=== PATIENT | female | born 1960 | race Caucasian/White ===

== ENCOUNTER 2020-01-01 00:14 | Day surgery (SDC) | payer BC, OTHER, SELFPAY ==
[2019-12-21 20:03] VITALS: BMI 41.6
[2020-01-01] VITALS (8 sets, daily range): BP systolic 108–148; BP diastolic 59–81; PULSE 67–87; RESP 14–21; TEMP 36.3–37.2; O2SAT 92–98
--- NOTE | 2020-01-01 07:22 | WPDHPUPDATE1 ---
History and Physical Update Update Date/Time: 01/01/20 07:22 History and Physical has been reviewed, including an updated exam of the patient. There are NO changes in the patient's condition. Risks, benefits, and alternatives have been discussed and questions answered. Patient agrees to proceed with procedure.
[2020-01-01] MEDS: LACTATED RINGERS 1,000 ML 30 ML IV CONT ×2 (07:30→11:08)
--- NOTE | 2020-01-01 08:08 | P.PNAN_ITS ---
Anes - Initial Pre Proc Eval Procedure: Operation Date: 01/01/20 09:00 Proposed Procedures p Excision Ganglion Cyst Right Foot - Alcon Ortega JR, MD Date/Time: 01/01/20 08:08 Surgeon: Alcon Ortega JR, MD Pre Op Diagnosis: Ganglion Cyst Right Foot Patient Data Age: 59 Gender: F Height: 1.65 m Weight: 113.63 kg Allergies Allergy/AdvReac Type Severity Reaction Status Date / Time aspirin Allergy Unknown Rash Verified 12/21/19 19:55 Home Medications Medication Instructions Recorded Confirmed Type biotin mcg PO 12/21/19 History cholecalciferol (vitamin D3) 10,000 unit PO DAILY 12/21/19 12/21/19 History [Vitamin D3] levothyroxine 12/21/19 History meloxicam 12/21/19 History modafinil mg 12/21/19 History valsartan-hydrochlorothiazide tablet 12/21/19 History Patient hx anesthesia problems: other (DIFFICULT INTUBATION) Family hx anesthesia problems: none PMFSH Past Medical History Medical History (Updated 01/01/20 @ 08:12 by Sánchez Molina MD) Cancer SKIN CANCER HTN (hypertension) Hypothyroidism Morbid obesity with BMI of 40.0-44.9, adult QI on CPAP PFO (patent foramen ovale) 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 Surgical History Surgical History (Updated 01/01/20 @ 08:10 by Sánchez Molina MD) History of appendectomy S/P cervical spinal fusion Family History Family History (System 11/16/19 @ 16:46 by Anastasia Mclaughlin) Mother Family history of malignant neoplasm Family history of heart disease in male family member before age 55, Onset Age: 67 Patient's mother is Father Family history of heart disease in male family member before age 55, Onset Age: 81 Patient's father is Father Diabetes mellitus, Onset Age: 81 Cerebrovascular accident, Onset Age: 81 Family history of coronary artery disease, Onset Age: 81 Other Asthma Social History Social History (System 11/16/19 @ 16:46 by Anastasia Mclaughlin) Smoking status: Never smoker Alcohol intake: never Anes - Eval Final PreProcedure Day of Procedure 01/01/20 08:08 Patient weight: morbidly obese Heart: regular rate and rhythm Lungs: clear to auscultation and normal air movement Airway: Mallampati scale class II Neurological: alert and oriented Last oral intake: >/= 8 hours ASA classification: III Emergent: no Anesthetic plan: proceed Anesthesia type and monitoring: general GIVS and LMA Informed Consent: The patient's anesthetic plan and its attendant risks and benefits were discussed with the patient/family/POA. Questions were solicited and answers provided to the satisfaction of the patient/family/POA.
[2020-01-01] MEDS: ceFAZolin 2 GM/D5W 50 ML 2 GM/50 ML BAG IVPB (09:52)
[2020-01-01] MEDS: LIDOCAINE HCL 2% LOCAL INJ 20 ML VIAL 10 ML INFILTRATE (10:52)
--- NOTE | 2020-01-01 11:28 | PM.OP ---
Procedure Note - Brief Procedure Note - Brief Date of procedure: 01/01/20 Pre-op diagnosis: Ganglion Cyst Right Foot Post-op diagnosis: other (Lipoma right foot) Procedure performed: Excision of lipoma right foot Anesthesia: GLMA Surgeon: Alcon Ortega JR, DPM Estimated blood loss (mL): 1 Complications: No immediate complications Condition: stable Disposition: same day
--- NOTE | 2020-01-01 12:37 | SUR.PHASEII ---
POST-OP SHOE PLACED TO RIGHT FOOT.
--- NOTE | 2020-01-01 13:04 | SUR.PHASEII ---
DR. SALDIVAR CALLED RE: ASPIRIN ORDER. PT IS ALLERGIC TO ASPIRIN. DR SALDIVAR SAID FOR PT NOT TO TAKE IT. PT UNDERSTANDS INSTRUCTIONS.
--- NOTE | 2020-01-02 14:02 | OP_ITS ---
DATE OF PROCEDURE: 01/01/2020 PREOPERATIVE DIAGNOSIS: Soft tissue mass, right foot. POSTOPERATIVE DIAGNOSIS: Lipoma, right foot. PROCEDURE: Excision of soft tissue mass, right foot. HEMOSTASIS: Pneumatic ankle tourniquet at 250 mmHg. ESTIMATED BLOOD LOSS: Minimal. MATERIALS USED: Surgicel, 4-0 Vicryl and 4-0 Monocryl. COMPLICATIONS: None. DESCRIPTION OF PROCEDURE: The patient brought into the operating room, placed on the operative table in a supine position. Pneumatic ankle tourniquet was placed about the patient's right ankle. Following IV sedation, I performed a local anesthetic block along the dorsal anterior ankle utilizing 20 mL of 1:1 mixture of 2% lidocaine plain 0.5% Marcaine plain. Next, the foot was scrubbed, prepped, and draped in usual aseptic manner. An Esmarch bandage was used to examine the patient's right foot and ankle and pneumatic ankle tourniquet was inflated. Surgery began in the following manner. Attention was then directed to the dorsal aspect of the right proximal foot. The incision started just distal to the navicular cuneiform joint and extended proximal to the talonavicular joint area. At this point, the incision was continued deep down through the subcutaneous tissues using sharp and blunt dissection. Incision was made just medial to the neurovascular bundle. The neurovascular bundle, which was palpated preoperatively and marked. The dissection was continued deep where the deep peroneal nerve was visualized and retracted medially. Furthermore, the dorsalis pedis artery was also visualized along with venae comitantes, which were also reflected laterally. Deep to the neurovascular bundle, was a large lipoma measuring approximately 4 cm in length x 4 cm in width. This was excised very carefully utilizing a needle-nose rongeur. No remnants of the lipoma were visualized. The lipoma was sent for gross and histopathology. The wound site was flushed with copious amounts of sterile saline. I utilized Surgicel overlying the neurovascular bundle to make sure that there was no postoperative bleeding. The wound site was then flushed with copious amounts of sterile saline once again and the subcutaneous structures were reapproximated, coapted utilizing 4-0 Vicryl. Next, the skin was reapproximated, coapted utilizing 4-0 Monocryl in a running subcuticular suture fashion technique. I applied a postsurgical dressing consisted one quarter-inch Steri-Strips, Adaptic, 4x4s, Kerlix, and Coban overlying the incision site. Next, a surgical shoe was applied to the right foot. The patient did very well with the procedure and anesthesia. She was taken to the recovery room with vital signs stable and vascular status intact to all toes of the right foot. Following a period of postoperative monitoring, the patient will be discharged home on the following written and oral postoperative instructions. 1. Keep the dressing clean, dry, and intact. 2. Avoid excessive ambulation. 3. Ice and elevate the right foot when at rest. 4. Wear surgical shoe at all times with ambulating. 5. Contact Dr. Ortega for all postop care and if any problems arise. 6. Prescriptions written for Percocet 5/325 dispensed 30 to be taken 1 p.o. q.4-6 hours as needed for severe pain. D I MT: Christian
== END 2020-01-01 13:02 | disposition home or self-care (01) ==
PROVIDERS: PCP Student in an Organized Health Care Education/Training Program; Visit Provider Podiatrist Foot & Ankle Surgery
PROC: (CPT 28039; principal; 2020-01-01 09:00)
DX: D17.79 Benign lipomatous neoplasm of other sites (principal); I10 Essential (primary) hypertension; E03.9 Hypothyroidism, unspecified; G47.33 Obstructive sleep apnea (adult) (pediatric); Q21.1 Atrial septal defect; E66.01 Morbid (severe) obesity due to excess calories; Z68.41 Body mass index [BMI] 40.0-44.9, adult; Z98.1 Arthrodesis status
CPT/HCPCS: 28039; 88304; J0131; J0690; J1100; J2250; J2405; J2704; J3010; J7120

== ENCOUNTER → 2021-01-02 01:16 | Outpatient (CLI) | payer OTHER, SELFPAY ==
[2021-01-02 18:28] LABS: SARS-CoV-2 RNA PCR Negative
== END ==
PROVIDERS: PCP Student in an Organized Health Care Education/Training Program; Visit Provider Surgery
DX: Z01.812 Encounter for preprocedural laboratory examination (principal); Z20.822 Contact with and (suspected) exposure to COVID-19
CPT/HCPCS: C9803; U0003; U0005

== ENCOUNTER 2021-01-05 01:03 | Day surgery (SDC) | payer OTHER, SELFPAY ==
[2021-01-02 10:19] VITALS: BMI 44.6
[2021-01-05] VITALS (8 sets, daily range): BP systolic 119–171; BP diastolic 56–95; PULSE 72–82; RESP 12–25; TEMP 36.4–36.8; O2SAT 97–100
[2021-01-05] MEDS: ACETAMINOPHEN 500 MG TABLET 1000 MG PO (12:04)
[2021-01-05] MEDS: KETOROLAC 15 MG/ML VIAL (*BKC) IV PUSH (12:06)
[2021-01-05] MEDS: LACTATED RINGERS 1,000 ML 30 ML IV CONT (12:07)
[2021-01-05 12:21] LABS: Glucose Point of Care 154 (65-105)
--- NOTE | 2021-01-05 12:34 | WPDANESEPPF ---
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 Patient Data Age: 60 Gender: F Height: 5 ft 4 in Weight: 115.7 kg Last Vital Signs Temp 97.6 F 01/05/21 12:23 Pulse 76 01/05/21 12:23 Resp 20 01/05/21 12:23 BP 151/84 H 01/05/21 12:23 Pulse Ox 98 01/05/21 12:23 Allergies Allergy/AdvReac Type Severity Reaction Status Date / Time aspirin Allergy Mild Rash Verified 01/02/21 10:16 atorvastatin AdvReac Mild myalgias Verified 01/02/21 10:16 Home Medications Medication Instructions Recorded Confirmed Type cholecalciferol (vitamin D3) 10,000 unit PO DAILY 12/21/19 01/02/21 History [Vitamin D3] levothyroxine 100 mcg PO DAILY 12/21/19 01/02/21 History meloxicam 15 mg PO DAILY 12/21/19 01/02/21 History modafinil [Provigil] 200 mg PO DAILY 12/21/19 01/02/21 History valsartan-hydrochlorothiazide 1 tablet PO DAILY 12/21/19 01/02/21 History clotrimazole 1 % topical cream 1 applic TOPICAL Q12H 09/12/20 01/02/21 History pravastatin 20 mg tablet 20 mg PO DAILY 09/12/20 01/02/21 History clopidogrel [Plavix] 75 mg PO DAILY 01/02/21 01/02/21 History Laboratory Tests 01/05/21 01/05/21 12:14 12:19 Sodium Pending Potassium Pending Chloride Pending Carbon Dioxide Pending Anion Gap Pending BUN Pending Creatinine Pending Estim Creat Clear Calc Pending Estimated GFR Pending Glucose Pending POC Capillary Glucose 154 mg/dl H mg/dl (65-105) Calcium Pending Patient hx anesthesia problems: none Family hx anesthesia problems: none PMFSH Past Medical History Medical History (Updated 12/19/20 @ 11:03 by Katrin Villalobos) Cancer SKIN CANCER History of kidney stones History of stroke 05/2020 HTN (hypertension) Hypothyroidism Morbid obesity with BMI of 40.0-44.9, adult QI on CPAP PFO (patent foramen ovale) 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 Status post placement of bone anchored hearing aid (BAHA) Surgical History Surgical History H/O breast reconstruction H/O total hysterectomy History of appendectomy History of arthroplasty of left shoulder History of D&C with ectopic removal History of left shoulder replacement History of surgical removal of skin lesion lipoma right foot History of tubal ligation History of tympanoplasty History of tympanostomy tube placement Hx of cardiac cath Hx of LASIK TENZIN S/P cervical spinal fusion S/P laparotomy oorpherectomy S/P tonsillectomy and adenoidectomy Family History Family History Mother Family history of malignant neoplasm Family history of heart disease in male family member before age 55, Onset Age: 67 Patient's mother is Asthma Diabetes mellitus Arthritis Father Family history of heart disease in male family member before age 55, Onset Age: 81 Patient's father is Diabetes mellitus Heart disease Cerebrovascular accident Sibling Heart disease Diabetes mellitus Sibling Heart disease Diabetes mellitus Grandparent Breast cancer Social History Social History Smoking status: Never smoker Alcohol intake: never Living arrangements: with family 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
[2021-01-05 12:36] LABS: Anion Gap 6 mmol/L (8-16); Blood Urea Nitrogen 13 mg/dL (7-17); Calcium 9.7 mg/dL (8.4-10.2); Carbon Dioxide 30 mmol/L (22-30); Chloride 105 mmol/L (98-107); Estimated CRCL calculation 107 ml/min; Estimated Glomerular Filt Rate > 60; Glucose 159 mg/dL (65-105); Potassium 3.9 mmol/L (3.4-5.0); Sodium 141 mmol/L (137-145)
--- NOTE | 2021-01-05 12:55 | WPDHPUPDATE1 ---
History and Physical Update Update Date/Time: 01/05/21 12:55 History and Physical has been reviewed, including an updated exam of the patient. There are NO changes in the patient's condition. Risks, benefits, and alternatives have been discussed and questions answered. Patient agrees to proceed with procedure.
[2021-01-05] MEDS: ceFAZolin 2 GM/D5W 50 ML 2 GM/50 ML BAG IVPB (13:11)
--- NOTE | 2021-01-05 13:11 | P.OP_ITS ---
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 She was then placed in prone alana-knife position. The buttocks were taped apart. Prep and drape was carried out. Hill-Diehl anoscope was used to inspect the perianal area and anal canal. In internal opening was easily seen in the anterior midline. An external opening was not readily apparent. A probe was then used and passed from the internal opening through a well-formed tract and came directly out the large, tender perianal skin tag. The tag must have contained the external opening. The skin tag was excised and sent to pathology in formalin. A short intersphincteric fistula tract was noted. The cautery was used and fistulotomy was performed. Granulation tissue was removed from the tract. The entire wound was infiltrated with local anesthetic for postoperative pain control. Cautery was used for hemostasis. The wound was dressed with Xeroform gauze and fluffs. Tape and Promise panties were placed. The patient was returned to a supine position. She was awakened and extubated. She was taken to recovery in good condition. Sponge and needle counts were correct x2. 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 Skin tag sent for histology.
[2021-01-05] MEDS: BUPIVACAINE/EPINEPHRINE 0.5% 30 ML VIAL INFILTRATE (13:42)
== END 2021-01-05 15:36 | disposition home or self-care (01) ==
PROVIDERS: Anesthesiology; PCP Student in an Organized Health Care Education/Training Program; Visit Provider Surgery
PROC: (CPT 46275; principal; 2021-01-05 13:30)
DX: K60.3 Anal fistula (principal); L91.8 Other hypertrophic disorders of the skin; I10 Essential (primary) hypertension; Q21.1 Atrial septal defect; E03.9 Hypothyroidism, unspecified; G47.33 Obstructive sleep apnea (adult) (pediatric); Z86.73 Personal history of transient ischemic attack (TIA), and cerebral infarction without residual deficits; E66.01 Morbid (severe) obesity due to excess calories; Z68.41 Body mass index [BMI] 40.0-44.9, adult; Z98.1 Arthrodesis status; Z79.899 Other long term (current) drug therapy; Z79.02 Long term (current) use of antithrombotics/antiplatelets
CPT/HCPCS: 46275; 36415; 80048; 82948; 88304; 88305; A9270; C9803; J0330; J0690; J1100; J1885; J2250; J2370; J2405; J2704; J3010; J7120; U0003; U0005

== ENCOUNTER 2021-01-19 12:37 | Outpatient (CLI) | payer OTHER, SELFPAY ==
--- NOTE | ~2021-01-19 | CT_ITS ---
EXAMINATION: CT abdomen pelvis wo/w con DATE: 01/19/2021 13:56 INDICATION: Gross hematuria TECHNIQUE: Computed tomography (CT) of the abdomen and pelvis was performed without and subsequently with 130 cc Omnipaque 350 intravenous contrast. Automated exposure control and iterative reconstructi on technique were employed. Exam dose: 2979.53 mGy-cm total exam DLP. COMPARISON: 07/11/2015 CT abdomen pelvis FINDINGS: The lung bases are clear of infiltrate or consolidation. Normal heart size. No pericardial or pleural effusion. There is diffuse hepatic steatosis. No hepatic space-occupying mass lesion. No intrahepatic or extrah epatic bile duct or pancreatic duct dilatation. No pancreatic mass lesion or calcification. Normal sp lenic size. The gallbladder is present. No gallbladder wall thickening or pericholecystic fluid or fat stranding. CT is not sensitive for detection of gallstones; ultrasound of the gallbladder was more appropriate for this purpose. Normal morphology of the adrenal glands. 7.5 mm fat density lesion at upper pole right kidney, likely a small angiomyolipoma. No other renal s pace occupying mass lesion is evident. The urinary bladder is unremarkable. 4 x 7.5 x 7 mm right renal pelvic calculus (917 Hounsfield units). 3 mm nonobstructing right renal calculus. Punctate and adjacent 2.8 mm left renal nonobstructing calculi. No ureteral calculus or hydroureteronephrosis. No bowel obstruction, bowel wall thickening, pneumatosis or intraperitoneal free air. Status post hysterectomy. Normal caliber of the abdominal aorta. No intraperitoneal or retroperitoneal or pelvic mass lesion or adenopathy or ascites. Degenerative changes of the thoracic and lumbar spine. No suspicious osteolytic or osteoblastic lesio ns are noted. 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 Reviewed, dictated and finalized at location A. MAINTAINER SECTION
[2021-01-19 13:33] LABS: Estimated Glomerular Filt Rate > 60
== END 2021-01-19 12:38 | disposition home or self-care (01) ==
PROVIDERS: PCP Student in an Organized Health Care Education/Training Program; Visit Provider Student in an Organized Health Care Education/Training Program
DX: R31.0 Gross hematuria (principal); N20.0 Calculus of kidney; M47.815 Spondylosis without myelopathy or radiculopathy, thoracolumbar region; K76.0 Fatty (change of) liver, not elsewhere classified
CPT/HCPCS: 74178; Q9967

== ENCOUNTER 2021-12-11 09:11 | Outpatient (CLI) | payer OTHER, SELFPAY ==
--- NOTE | ~2021-12-11 | XR_ITS ---
EXAMINATION: XR abdomen/kub 1V DATE: 12/11/2021 09:37 INDICATION: Nephrolithiasis. TECHNIQUE: A supine view of the abdomen on 2 radiographs was obtained. COMPARISON: CT abdomen and pelvis 01/19/2021 FINDINGS: There are no dilated loops of bowel. There are phleboliths in the pelvis. IMPRESSION: 1. No visible urolithiasis. Reviewed, dictated and finalized at location A. HELPER FRUIT IMPRESSION: 1. No visible urolithiasis.
== END 2021-12-11 09:12 | disposition home or self-care (01) ==
LOC: ANHIMG 09:17
PROVIDERS: PCP Hospitalist; Visit Provider Urology
DX: N20.0 Calculus of kidney (principal)
CPT/HCPCS: 74018

== ENCOUNTER 2022-07-10 08:45 | Outpatient (CLI) | payer OTHER, SELFPAY ==
--- NOTE | ~2022-07-10 | XR_ITS ---
XR abdomen/kub 1V 07/10/2022 09:01 INDICATION: Nephrolithiasis TECHNIQUE: KUB COMPARISON: 12/11/2021 FINDINGS: Bowel gas pattern is normal. There is no evidence of free air, mass, organomegaly, ascites or obstruction. No abnormal calculi are seen. Calcifications in the pelvis are believed to be phleb oliths. The bones appear intact. IMPRESSION: 1: No acute abdominal abnormality identified. Reviewed, dictated and finalized at location B.
== END 2022-07-10 08:46 | disposition home or self-care (01) ==
LOC: ANHIMG 08:50
PROVIDERS: PCP Hospitalist; Visit Provider Urology
DX: N20.0 Calculus of kidney (principal)
CPT/HCPCS: 74018

== ENCOUNTER 2024-02-12 14:43 | Outpatient (CLI) | payer OTHER, SELFPAY ==
--- NOTE | ~2024-02-12 | XR_ITS ---
XR hip LT 2V w AP pelvis DATE: 02/12/2024 14:58 INDICATION: Left hip pain TECHNIQUE: AP pelvis. AP and lateral views of left hip. COMPARISON: None FINDINGS: The pubic symphysis and sacroiliac joints are intact. No fracture or dislocation, avascular necrosis or bone destruction of the left hip. Left hip joint sp hailee appears relatively well preserved. No pelvic fracture or bone destruction. IMPRESSION: No significant abnormality Reviewed, dictated and finalized at location B. IMPRESSION: No significant abnormality
== END 2024-02-12 14:44 | disposition home or self-care (01) ==
LOC: ANHIMG 14:44
PROVIDERS: PCP Hospitalist; Visit Provider Orthopaedic Surgery
DX: M25.552 Pain in left hip (principal)
CPT/HCPCS: 73502

== ENCOUNTER 2024-04-30 09:13 | Outpatient (CLI) | payer OTHER, SELFPAY ==
--- NOTE | ~2024-04-30 | MR_ITS ---
MRI of the left hip Clinical history: Trochanteric bursitis Technique: Coronal T1-weighted, T2-weighted, and proton-density fat-sat images, and axial T1-weighted and proton-density fat-sat images were acquired through the pelvis. Coronal T2-weighted images and c oronal, axial, and sagittal proton-density fat-sat images were acquired through the left hip. Findings: There is no fracture or avascular necrosis of either hip. Bone marrow signals of the proxim al femora and pelvic bones are unremarkable. There is moderate to advanced diffuse chondromalacia bot h hip joints, left worse than right. No significant joint effusion. Questionable subtle linear tear o f the anterior left acetabulum. Visualized musculature about the pelvis and left hip is unremarkable. No muscle atrophy or edema. Ten dons are intact. No evidence of bursitis. No other fluid collection or mass lesion evident. There is minimal tendinosis of the insertion of the left gluteus medius/minimus tendons. IMPRESSION: No evidence for bursitis. Mild degenerative change of both hips, as detailed above. Questionable subtle linear anterior left acetabular labral tear. Mild tendinosis of the insertion of the left gluteus tendons on the greater trochanter. Reviewed, dictated and finalized at location . IMPRESSION: No evidence for bursitis. Mild degenerative change of both hips, as detailed above. Questionable subtle linear anterior left acetabular labral tear. Mild tendinosis of the insertion of the left gluteus tendons on the greater tro chanter.
== END 2024-04-30 09:14 ==
LOC: MICIMG 09:14
PROVIDERS: PCP Physician Assistant Surgical; Visit Provider Physician Assistant Surgical
DX: M70.62 Trochanteric bursitis, left hip (principal)
CPT/HCPCS: 73721

== ENCOUNTER 2024-05-21 09:20 | Outpatient (CLI) | payer OTHER, SELFPAY ==
--- NOTE | ~2024-05-21 | XR_ITS ---
XR abdomen/kub 1V Ordering provider: Ynes Lange PA-C History: . NEPHROLITHIASIS, LEFT SIDED DISCOMFORT, H/O STONES . Comparison: April 30, 2023 FINDINGS: BOWEL: Nonobstructive bowel gas pattern. ORGANOMEGALY: None. SIGNIFICANT PATHOLOGIC CALCIFICATIONS: None. OTHER: No free air is seen under the diaphragm. Degenerative disc disease at the level of T12-L1 and L5-S1. IMPRESSION: NO ACUTE ABDOMINAL FINDINGS. Reviewed, dictated and finalized at location A.
== END 2024-05-21 09:21 | disposition home or self-care (01) ==
LOC: ANHIMG 09:22
PROVIDERS: PCP Hospitalist; Visit Provider Physician Assistant
DX: N20.0 Calculus of kidney (principal)
CPT/HCPCS: 74018

== ENCOUNTER 2025-06-15 12:13 | Outpatient (CLI) | payer OTHER, SELFPAY ==
--- NOTE | ~2025-06-15 | XR_ITS ---
EXAM/PROCEDURE: XR abdomen/kub 1V - 06/15/2025 12:35 CDT HISTORY: 64 years old Female with NEPHROLITHIASIS COMPARISON: None available. TECHNIQUE: AP view(s) of the abdomen. FINDINGS: The bowel gas pattern is normal. There is no evidence for obstruction. No free intraperitoneal air is identified on this supine radiograph. The visualized soft tissue shadows are unremarkable. No gross bony abnormalities are seen. Visualized portions of lung bases are clear. IMPRESSION: No acute process. Reviewed, dictated and finalized at location A. IMPRESSION: No acute process.
--- OUTSIDE RECORDS SUMMARY | 2025-06-15 12:29 | XMS_ITS | Continuity of Care Document ---
Author Name [facility] Organization [facility] Care Team Providers Care Certified Diabetes Educator Name Role Phone [facility] Unavailable Unavailable Medications Combined list of outpatient medications from Department of Defense and Veterans Affairs facilities.Medications provided include 1) outpatient medications from the last 15 months, and 2) patient-reported medications. Medication Details Route Status Patient Instructions Prescription Expires Prescription Number Last Dispense Date Ordering Provider Order Date Order Qty Source CLOPIDOGREL (CLOPIDOGRE L BISULFATE), 75 MG, TABLET, ORAL, AUROBINDO PHARM, 500 ea. BOTTLE Active [id number] 2023 30 Pharmac y Data Transac tion Service Facilit y EZETIMIBE (ezetimibe) , 10 MG, TABLET, ORAL, AUROBINDO PHARM, 30 ea. BOTTLE Cancele d [id number] : 2023 0 Pharmac y Data Transac tion Service Facilit y EZETIMIBE (ezetimibe) , 10 MG, TABLET, ORAL, SANDOZ, 30 ea. BOTTLE Cancele d [id number] : 2023 0 Pharmac y Data Transac tion Service Facilit y LIOTHYRONIN E SODIUM (liothyroni ne sodium), 25 MCG, TABLET, ORAL, ROMMEL PHARMA IN, 100 ea. BOTTLE Active [id number] 4 2023 60 Pharmac y Data Transac tion Service Facilit y LIOTHYRONIN E SODIUM (liothyroni ne sodium), 25 MCG, TABLET, ORAL, SIGMAPHARM LABO, 90 ea. BOTTLE Cancele d [id number] : 2023 0 Pharmac y Data Transac tion Service Facilit y LIOTHYRONIN E SODIUM (liothyroni ne sodium), 25 MCG, TABLET, ORAL, SIGMAPHARM LABO, 90 ea. BOTTLE Cancele d [id number] : 2023 0 Pharmac y Data Transac tion Service Facilit y LIOTHYRONIN E SODIUM (liothyroni ne sodium), 25 MCG, TABLET, ORAL, SIGMAPHARM LABO, 90 ea. BOTTLE Active [id number] 4 2023 60 Pharmac y Data Transac tion Service Facilit y MOUNJARO (tirzepatid e), 7.5 MG/0.5, PEN INJCTR, SUBCUT, SUMAYA CARLOS & CO., .5 ml SYRINGE Active [id number] 4 2023 2 Pharmac y Data Transac tion Service Facilit y MOUNJARO (tirzepatid e), 7.5 MG/0.5, PEN INJCTR, SUBCUT, SUMAYA CARLOS & CO., .5 ml SYRINGE Active [id number] 2023 2 Pharmac y Data Transac tion Service Facilit y MOUNJARO (tirzepatid e), 7.5 MG/0.5, PEN INJCTR, SUBCUT, SUMAYA CARLOS & CO., .5 ml SYRINGE Active [id number] 4 2023 2 Pharmac y Data Transac tion Service Facilit y ONETOUCH VERIO TEST STRIP (blood sugar diagnostic) , STRIP, MISCELL, LIFESCAN, 50 ea. BOX Active [id number] 4 2023 50 Pharmac y Data Transac tion Service Facilit y OXYBUTYNIN CHLORIDE (oxybutynin chloride), 5 MG, TABLET, ORAL, NOVITIUM/AN I PH, 500 ea. BOTTLE Active [id number] 4 2023 30 Pharmac y Data Transac tion Service Facilit y Social History Combined list of available smoking, tobacco, and other social history from Department of Defense and Veterans Affairs facilities. Social History Type Response Date Comment Sour e This section is an empty social history section. [employer]
--- OUTSIDE RECORDS SUMMARY | 2025-06-15 12:29 | XMS_ITS | Clinical Summary ---
Author Organization [facility] A Address [address] [place] [address] Care Team Providers Care Personnel Analyst Name Role Phone Jacob Kuo MD Unavailable Drake Long MD Primary Care Provider [phone] Allergies Active Allergy Reactions Criticality Noted Date Comments Adhesive Rash Medium 09/01/2024 Aspirin Rash,Other (See comments) Medium Reaction: Rash, , Reaction: Rash, , Reaction: Rash, , Reaction: Rash, , Reaction: Unknown, , Reaction: RASH, Zscetcj-Mst-Wom Reductase Inhibitors Muscle pain Medium 07/17/2024 Medications cholecalcifero l (VITAMIN D-3) 66268 unit capsuleIndicat ions:Preventio n of Vitamin D Deficiency Take 1 capsule (10,000 Units total) by mouth system support developer before breakfast 11/25/19 19 Active clotrimazole-b etamethasone (LOTRISONE) cream Apply topically 2 (two) times a day 15 g 3 07/01/20 23 Active OneTouch Delica Plus Lancet 33 gauge miscIndication s:Type 2 diabetes mellitus without complication, without long-term current use of insulin (HCC) 1 each by other route 2 (two) times a day 07/17/20 24 Active OneTouch Verio test strips stripIndicatio ns:Type 2 diabetes mellitus without complication, without long-term current use of insulin (HCC) 1 each by other route 2 (two) times a day 150 strip 1 07/17/20 24 Active clopidogreL (PLAVIX) 75 mg tablet TAKE 1 TABLET(75 MG) BY MOUTH DAILY 90 tablet 1 01/04/20 25 Active celecoxib (CeleBREX) 200 mg capsule Take 1 capsule (200 mg total) by mouth daily 90 capsule 3 01/05/20 25 026 Active albuterol 2.5 mg /3 mL (0.083 %) nebulizer solution Take 3 mL (2.5 mg total) by nebulization 4 (four) times a day as needed for wheezing or shortness of breath 90 mL 1 01/12/20 25 026 Active tirzepatide (Mounjaro) 7.5 mg/0.5 mL pen injector injectionIndic ations:Type 2 diabetes mellitus without complication, without long-term current use of insulin (HCC) Inject 0.5 mL (7.5 mg total) under the skin once a week 6 mL 6 02/13/20 25 026 Active liothyronine (CYTOMEL) 25 mcg tabletIndicati ons: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 Romeo -not yet visually significant; BCVA 20/25 OD, 20/20 OS -difficulty with glasses from [place]; recommend seeking different ECP for this -new MRx issued today -RTC 1 year DFE Assessment & Plan (04/24/2022 9:47 AM CDT): Blood sugars have been highly variable - prior myopic lasik with Dr. Romeo. CLT wearer. Discussed that cataract is not the main limiter of her vision - and blood sugars are causing variability in refraction and vision. If PSC worsens to 20/40 vision ok to proceed despite Blood sugar issues otherwise recommend observation until diabetes stabilizes. Nephrolithiasis 12/25/2021 Assessment & Plan (12/25/2021 3:12 PM SKIN CARE CONSULTANT): Patient follows with Nephrology for management nephrolithiasis; most recent imaging demonstrated several small 7 mm stones as well as possible mild lipoma Will continue to follow-up imaging results and recommendations from Urology Bilateral lower extremity edema 11/07/2021 Assessment & Plan (11/07/2021 1:51 PM SKIN CARE CONSULTANT): Patient has worsening edema, pain and itching noted in skin Some hemochromatosis noted Previously evaluated emergency department no evidence of blood clots Start furosemide 20 mg daily, will adjust dose as necessary to achieve euvolemia Chronic right shoulder pain 11/07/2021 Assessment & Plan (02/12/2025 10:47 AM CDT): Continues on Celebrex. Will continue to monitor. Stable and well controlled. Assessment & Plan (11/07/2021 1:52 PM SKIN CARE CONSULTANT): Patient has worsening right shoulder pain, previously 2 left shoulder surgeries for osteoarthritis Has episodes of severe pain and decreased range of motion; patient reports pain is not constant comes and goes based on activities Will get imaging today and determine if patient benefit from physical therapy Type 2 diabetes mellitus wit hout complication, without long-term current use of insulin 11/07/2021 Assessment & Plan (02/12/2025 10:47 AM CDT): Lab Results Component Value Date HGBA1C 5.7 (H) 02/05/2025 HGBA1C 5.5 07/09/2024 HGBA1C 5.9 (H) 03/26/2024 Will refill mounjaro. Tolerating well with some constipation. Not ready to increase to 10 mg yet. Will continue to monitor. Will be seeing Proof Carrier soon to establish care. Orders: tirzepatide (Mounjaro) 7.5 mg/0.5 mL pen injector injection; Inject 0.5 mL (7.5 mg total) under the skin once a week CBC with auto differential; Future Hemoglobin A1c; Future Albumin Creatinine Ratio, Urine; Future Assessment & Plan (09/18/2024 11:57 AM CDT): -last A1c 5.5% -no diabetic retinopathy noted on today's examination -ed pt on tight BG control and A1c below 7.0 to reduce risk of ophthalmic complications -RTC 1 year DFE Assessment & Plan (07/17/2024 8:58 AM CDT): Chronic, stable, well controlled Most recent 5.5 Continuing with good results with Mounjaro Continue Mounjaro 7.5 mg weekly SubQ weekly Assessment & Plan (03/31/2024 10:21 AM CDT): Chronic, well controlled Most recent A1c 5.9 Continuing to have good results with Mounjaro Continue Mounjaro 7.5 mg SubQ weekly Repeat labs in 3 months Assessment & Plan (07/01/2023 1:06 PM CDT): Has been having improved blood sugar control at home -has had weight loss with mounjaro -has been having episodes of hypoglycemia with eating refined sugars in morning Home blood sugars are generally normal; patient reports she continues to work on low-carbohydrate diet Has some episodes of hypoglycemia after eating large amounts refined sugars Encouraged continued use of complex carbohydrates in limiting refined sugars Continue tirzepatide 7.5 mg weekly Assessment & Plan (03/01/2023 4:09 PM CDT): Not well controlled, last A1c was 8.9; LDL at target for type 2 diabetes Transition to monjauro; currently 2.5 mg daily, will continue to titrate up Patient has lost 20 lb, continues to have significant weight loss with use of monjauro Continue monjauro 2.5 mg, increase to 5 mg after 1 month Assessment & Plan (12/25/2021 3:10 PM SKIN CARE CONSULTANT): Stable, improving; A1c is decreased 8.9 since Patient reports fasting blood sugars remain around 170 Continue metformin 1000 mg daily, increase Rybelsus to 7 mg daily Sensorineural hearing loss (SNHL) of both ears 0 08/08/2021 Assessment & Plan (08/08/2021 4:25 PM CDT): Has been present for long duration, has hearing implants in place Some difficulty with hearing speech, especially with mass History of CVA (cerebrovascular accident) 2020 Assessment & Plan (08/08/2021 4:29 PM CDT): Stable, no residual deficits, continue clopidogrel 75 mg daily Unclear if due to embolic verses embolus from patent foramen ovale Will continue to monitor Class 2 severe obesity due t o excess calories with serious comorbidity and body mass index (BMI) of 38.0 to 38.9 in adult 08/15/2018 Assessment & Plan (02/12/2025 10:47 AM CDT): Encouraged heart healthy diet and lifestyle. Advised 150 min/week of aerobic exercise. Assessment & Plan (07/17/2024 9:02 AM CDT): Weight stable Continue Mounjaro 7.5 mg daily Assessment & Plan (07/01/2023 1:07 PM CDT): Has had good weight loss with Monjauro Continues to obtain weight loss Will monitor closely Assessment & Plan (03/01/2023 4:09 PM CDT): Stable improving; started on Monjauro for control of blood sugar and weight Has lost 20 lb Continue to encourage dietary changes and Monjauro Assessment & Plan (11/07/2021 1:53 PM SKIN CARE CONSULTANT): Patient reports recent weight gain however may be related to worsening edema Will work on euvolemia, will start; tied 3 mg daily and increase in order to help with weight loss and management of type 2 diabetes Assessment & Plan (08/08/2021 4:28 PM CDT): Stable, not well controlled Patient has worked on weight loss strategies in the past, has a success with keto diet though currently is not able to continue with keto Has been increasing eating out as well as eating more fried foods Discussed with patient portion of portion control, as well as healthy dietary choices when eating out Encouraged exercise at least 30 minutes of moderate intensity exercise 5 days per week Abdominal pain, RUQ 08/15/2018 Assessment & Plan (08/15/2018 11:09 AM CDT): Considering rapid weight gain of 40 lb in the last 9 months and clinical presentation, and suspicious of this being cholelithiasis. I did educate patient in regard to proper diet implement if in the event we are considering gallstones to be the cause of her symptoms I did prescribe Zofran with the education that often this slows down GI absorption that weight 1 an get to use to taking it. Encouragement was provided to the 5-6 smaller meals a day, completion of gallbladder ultrasound with following up with pending results of testing any for consultation to a surgeon for removal with. With she is wanting to see somewhat [facility] possible as she has previously seen Dr. Villarreal and is wanting to the go somewhere closer to home if she needs to see a surgeon. Fatty liver 08/15/2018 Anal fissure 08/22/2017 Assessment & Plan (08/22/2017 4:49 PM CDT): Nifedipine paste applied topically to area of pain twice a day. Sitz baths were again encouraged to the patient. Encouraged to purchase over the counter Fiber supplement and to drink water with fiber intake for best outcomes. Will follow-up, but educated patient that this will likely take time to improve. Primary hypertension 06/10/2017 Assessment & Plan (02/12/2025 10:47 AM CDT): Stable and well controlled. Will continue to monitor. Continue to hold medications. Assessment & Plan (07/17/2024 9:26 AM CDT): Chronic, well controlled BP at goal at visit; 116/76 Continue to monitor BP at home Will continue holding BP meds Assessment & Plan (03/31/2024 10:22 AM CDT): Chronic, well controlled Has not taken her medication yet today BP at goal at visit; 116/74 Patient wishes to trial stopping Valsartan Follow up 3 months Assessment & Plan (07/01/2023 1:07 PM CDT): Patient today bp at goal; has not taken medication today Given appropriate blood pressure today; will transition to valsartan 80 mg daily; continue to monitor closely to determine long-term needs Assessment & Plan (03/01/2023 4:07 PM CDT): Stable, well controlled; blood pressure at target Continue valsartan-hydrochlorothiazide 160-25 mg daily Assessment & Plan (11/07/2021 1:52 PM SKIN CARE CONSULTANT): Stable, well controlled; blood pressure at target today with no episodes of hypotension Continue valsartan-hydrochlorothiazide 160-25 mg daily Assessment & Plan (08/08/2021 4:26 PM CDT): Stable, well controlled; blood pressure at target today with no orthostatics are headaches Continue Diovan 160-25 mg Hypothyroidism 03/28/2015 Assessment & Plan (02/12/2025 10:47 AM CDT): Will recheck thyroid. Will continue to monitor. Has an appointment with new Endocrinology by her soon. Orders: Comprehensive metabolic panel; Future TSH; Future T4, free; Future Assessment & Plan (07/17/2024 8:56 AM CDT): Chronic, stable Most recent TSH 0.24 Continue Cytomel 25 mcg daily Assessment & Plan (03/31/2024 10:23 AM CDT): Stable, well controlled Continue Cytomel 25 mcg daily Repeat labs 3 months Assessment & Plan (07/01/2023 1:06 PM CDT): Stable, well controlled; patient has normal energy levels Continue liothyronine 50 mcg daily Assessment & Plan (03/01/2023 4:08 PM CDT): Stable, well controlled; continue Cytomel 50 mcg daily Assessment & Plan (11/07/2021 1:53 PM SKIN CARE CONSULTANT): Stable, well controlled; continue levothyroxine 100 mcg daily Assessment & Plan (08/08/2021 4:26 PM CDT): Stable, will continue levothyroxine 100 mcg; check TSH at follow-up appointment Chronic diastolic heart failure (CMS/HCC) 2013 Assessment & Plan (02/12/2025 10:47 AM CDT): Stable and controlled. No peripheral swelling noted. Will continue on Plavix. Assessment & Plan (07/01/2023 1:07 PM CDT): Stable, well controlled; no significant peripheral edema Assessment & Plan (12/25/2021 3:09 PM SKIN CARE CONSULTANT): Stable, improving; patient reports decreased peripheral edema furosemide; no evidence of orthopnea or dyspnea on exertion Continue furosemide 20 mg p.r.n. edema Atherosclerosis of coronary artery 07/22/2014 Obstructive sleep apnea syndrome 04/10/2014 Assessment & Plan (02/12/2025 10:47 AM CDT): Continues with CPAP use and monitoring. Following with Sleep Med. 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 Not tolerating statins. Will continue to monitor and control with diet. Orders: Lipid panel; Future Assessment & Plan (07/17/2024 9:02 AM CDT): Chronic, not controlled Has not been taking Pravastatin due to muscle cramps Assessment & Plan (03/31/2024 10:23 AM CDT): Chronic, not controlled Has not been taking Pravastatin due to cardiology not sending refill Restart Pravastatin 20 mg daily Repeat labs in 3 months Assessment & Plan (07/01/2023 1:06 PM CDT): Stable, well controlled Continue pravastatin 20 mg daily Assessment & Plan (03/01/2023 4:10 PM CDT): Stable, well controlled; LDL at target for type 2 diabetes Continue pravastatin 20 mg daily Assessment & Plan (11/07/2021 1:53 PM SKIN CARE CONSULTANT): Stable, continue pravastatin 20 mg daily Assessment & Plan (08/08/2021 4:26 PM CDT): Stable, continue pravastatin 20 mg daily Vitamin D deficiency 06/11/2011 Assessment & Plan (07/01/2023 1:05 PM CDT): Normal energy levels; will check vitamin-D levels to evaluate need for continue vitamin-D supplementation Resolved Problems Problem Noted Date Diagnosed Date Resolved Date Encounter for screening colonoscopy 09/27/2021 03/31/2024 Overview (09/27/2021): Added automatically from request for surgery [id number] Boil of buttock 04/06/2019 03/31/2024 Overview (04/06/2019): See problem noted above. Assessment & Plan (04/06/2019 9:11 AM CDT): Keflex 50mmg 1 tab QID x 10 days; pt is on prophylactic Duricef ; pharmacist at [facility] called and reminded him that she is on Duricef----states that he will appropriately correctional substance abuse counselor her on taking the Keflex; pt to call if sxs persist. Rectal abscess 08/19/2017 07/25/2018 Assessment & Plan (08/19/2017 3:38 PM CDT): Continue antibiotic as previously prescribed. Start Sitz baths 2-3 times per day. Proceed with surgical consultation-referral arranged. Elevated fasting glucose 06/10/201705/2024 Assessment & Plan (08/08/2021 4:28 PM CDT): Will continue metformin 1000 mg XR daily Continue to encourage dietary changes; if A1c remains elevated at next appointment, will consider additional therapies Morbid obesity 07/22/2014 08/15/2018 Overview (03/01/2017): Morbid obesity Shortness of breath 07/22/2014 07/25/20 18 Overview (03/01/2017): SOB (shortness of breath) Pulmonary hypertension 07/22/201403/31 Hyperlipidemia 04/10/2014 06/10/2017 Overview (03/01/2017): Hyperlipidemia Shoulder pain 06/16/2012 07/25/2018 Overview (03/01/2017): Shoulder pain, left Hypersomnia with sleep apnea 04/14/2012 07/17/2024 Obstructive sleep apnea syndrome in adult 04/14/2012 07/25/2018 Overview (03/02/2017): Obstructive sleep apnea syndrome in adult Encounters Date Type Department Care Team Description 04/05/2025 Telephone [facility] [address] [address] Karishma العلي NP Authorization/Certifica tion from Last 3 Months Immunizations Immunization Administration Dates Next Due Hep A / Hep B 11/22/2009 Influenza, Quadrivalent, Spl it, Preservative Free, Intramuscular 10/03/2021,08/17/2020,09/04/2017,10/06 Influenza, Unspecified 02/12/2025(Deferr ed: Patient Refused),07/26/2024(Deferred: Patient Refused),09/26/2023(Deferred: Patient Refused),02/22/2023(Deferred: Patient Refused),08/25/2022(Deferred: Patient Refused),11/25/2021(Deferred: Patient Refused),08/08/2021(Deferred: Patient Refused),11/25/2020(Deferred: Patient Refused),08/25/2019,02/02/2019(Deferre d: Patient Refused),09/04/2017 Pneumococcal Polysaccharide PPV23 08/17/2020 Tdap 09/21/2021 Surgical History Surgery Date Site/Laterality Comments OTHER SURGICAL HISTORY 11/25/1998 - 11/24/1999 L knee lateral release OTHER SURGICAL HISTORY 11/25/2002 - 11/24/2003 b/l ear surgery ECTOPIC SURGERY 11/25/1984 - 11/24/1985 tubal OTHER SURGICAL HISTORY 11/25/1966 - 11/24/1967 t & a HYSTERECTOMY 11/25/2001 - 11/24/2002 Hysterectomy VAGINAL HYSTERECTOMY Hysterectomy, vaginal TOTAL ABDOMINAL HYSTERECTOMY W/ BILATERAL SALPINGOOPHORECTOMY 11/25/2001 - 11/24/2002 Hysterectomy, LINH, with BSO REDUCTION MAMMOPLASTY 11/25/2007 - 11/24/2008 breast reduction OTHER SURGICAL HISTORY knee meniscectomy MASTOID SURGERY Mastoidectomy/unknown date OTHER SURGICAL HISTORY 11/25/1982 - 11/24/1983 : 3 hr labor OTHER SURGICAL HISTORY 11/25/1985 - 11/24/1986 : 1 1/2 hr labor OTHER SURGICAL HISTORY 11/25/1975 - 11/24/1976 Appendix removal OTHER SURGICAL HISTORY 11/25/1965 - 11/24/1966 T & A KNEE ARTHROSCOPY 11/25/1998 - 11/24/1999 Knee scope OTHER SURGICAL HISTORY 11/25/1978 - 11/24/1979 L oopherectomy ECTOPIC SURGERY 11/25/1984 - 11/24/1985 Ectopic OTHER SURGICAL HISTORY 11/25/2001 - 11/24/2002 LINH, RSO and Cano OTHER SURGICAL HISTORY 11/25/2009 - 11/24/2010 Cardiac cath. OTHER SURGICAL HISTORY Patent Foramen Ovale OTHER SURGICAL HISTORY T & A 1967 OTHER SURGICAL HISTORY 11/25/1984 - 11/24/1985 ectopic 1984 OTHER SURGICAL HISTORY mulitple ear surgeries OTHER SURGICAL HISTORY 11/25/2007 - 11/24/2008 breast reduction 2007 OTHER SURGICAL HISTORY Positive PPD 1993 OTHER SURGICAL HISTORY Hearing Aid 2004 OTHER SURGICAL HISTORY 11/25/2003 - 11/24/2004 Heart Problems PFO 2003 OTHER SURGICAL HISTORY Dulding Discs/C-spine APPENDECTOMY 11/25/1975 - 11/24/1976 Appendectomy KNEE ARTHROSCOPY 11/25/1998 - 11/24/1999 Arthroscopy knee OTHER SURGICAL HISTORY 11/25/1993 - 11/24/1994 lt tympanoplasty OTHER SURGICAL HISTORY 11/25/1994 - 11/24/1995 rt tympanoplasty OTHER SURGICAL HISTORY 11/25/2005 - 11/24/2006 johan lasek OTHER SURGICAL HISTORY 11/25/1998 - 11/24/1999 lt knee lat release TUBAL LIGATION 11/25/1997 - 11/24/1998 Bilateral tubal ligation OTHER SURGICAL HISTORY 11/25/1982 - 11/24/1983 D&C OTHER SURGICAL HISTORY 11/25/1984 - 11/24/1985 D&C BREAST RECONSTRUCTION 11/25/2007 - 11/24/2008 breast reconstruction OTHER SURGICAL HISTORY 11/25/2004 - 11/24/2005 rt tympanoplasty OTHER SURGICAL HISTORY 11/25/2003 - 11/24/2004 rt tympanomastoidectomy OTHER SURGICAL HISTORY lt oopherectomy TONSILLECTOMY 11/25/1965 - 11/24/1966 Tonsillectomy SHOULDER ARTHROSCOPY 11/25/2011 - 11/24/2012 Left Arthroscopy shoulder REDUCTION MAMMAPLASTY 11/25/2007 - 11/24/2008 Bilateral COLONOSCOPY >10 yrs ago CERVICAL FUSION x2 2015 & 2020 LASIK 11/25/2004 - 11/24/2005 Bilateral JOINT REPLACEMENT Shoulder Replacement 2016 & 2018 SPINE SURGERY Cervical Fusion (C5-6) 2014 & 2019 OTHER SURGICAL HISTORY 11/25/2019 - 11/24/[address] & currently inactive Medical History Medical History Date Comments 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 Hx Other Medical 03-gi Hx Other Medical Appendicitis Hx Other Medical Breast reductio n Hx Other Medical Sleep Apnea, CP AP Adiposity Obesity Hx Other Medical Bulging cervica l Disk Hx Other Medical 1982 ; Outc ome: 40 week 8 lb(s) 4 oz Male Hx Other Medical 1986 ; Outc ome: 41 week 9 lb(s) 5 oz Female Malignant neoplasm of skin Cance r, skin Osteoarthritis Osteoarthritis Depression Depression Hx Other Medical 1985 Ectopic pregnan cy Hx Other Medical ear surgery Hx Other Medical Gluten intolera nce: diarrhea Fibrocystic breast Skin cancer Cataract Diabetes mellitus (HCC) Hypertension Sleep apnea Stroke (HCC) 06/21/2020 Thyroid disease 2014 Mixed conductive and sensori neural hearing loss 1987 Kidney stone 1999, 2014, 2019 Fracture of nasal bones Hard to intubate per pt ~2018 shoulder surgery at OSH, video has been used per record review CHF (congestive heart failur e) (HCC) CAD (coronary artery disease) COUCH (nonalcoholic steatohepatitis) Type 2 diabetes mellitus (HCC) PFO (patent foramen ovale) Family History Medical History Relation Name Comments Cancer Father Yong Cancer, unknown ; Coronary artery disease Father Yong Analia nary artery disease; Diabetes Father Yong Diabetes mellit us; Hearing loss Father Yong Heart attack Father Yong Heart disease Father Yong Heart disease; Hypertension Father Yong Hypertension; Other Father Yong ; /diab etic, stroke, cad; Cause of : diabetic, stroke, cad/DM; Stroke Father Yong Stroke; Mental illness Father's Sister Arthritis Mother Yves Asthma Mother Yves Asthma; Cancer Mother Yves Cancer -; /Canc er; /cancer; Cause of : cancer/Cancer, unknown; Clotting disorder Mother Yves Coronary artery disease Mother Yves Analia nary artery disease; Diabetes Mother Yves Diabetes mellit us; Diabetes type II Mother Yves Diabetes -T ype 2; Heart disease Mother Yves Heart disease; Hypertension Mother Yves Hypertension; Migraines Mother Yves Migraine; Obesity Mother Yves Other Mother Yves ; Breast cancer Paternal Grandmother Ana Maria Coronary artery disease Sister 1 Pearl Analia nary artery disease; Diabetes Sister 1 Pearl Heart disease Sister 1 Pearl Memory loss Sister 1 Pearl Obesity Sister 1 Pearl Coronary artery disease Sister 2 Laura Diabetes Sister 2 Laura Diabetes mellit us; Heart disease Sister 2 Laura Obesity Sister 2 Laura Diabetes Sister 3 Heart disease Sister 3 Memory loss Sister 3 Blindness Neg Hx Glaucoma Neg Hx Macular degeneration Neg Hx Relation Name Status Comments Father Yong (Age 80) Father's Sister Alive Mother Yves (Age 67) Paternal Grandmother Ana Maria Sister 1 Pearl Alive Sister 2 Laura Alive Sister 3 Alive Social History Tobacco Use Types Packs/Day Years Used Date Smoking Tobacco: Never Cigarettes Smokeless Tobacco: Never Tobacco Cessation:Counseling Given: Not Answered Alcohol Use Standard Drinks/Week Comments No 0 (1 standard drink = 0.6 oz pur e alcohol) AUDIT-C Answer Date Recorded Q1: How often do you have a drink containing alcohol? Never 10/28/2024 Q2: How many drinks containi ng alcohol do you have on a typical day when you are drinking? Patient does not drink Q3: How often do you have si x or more drinks on one occasion? Never 10/28/2024 PHQ-2 Answer Date Recorded PHQ-2 Total Score (If total score is 3 or more points, staff should administer the PHQ-9) 0 02/12/2025 Personal Safety Answer Date Recorded Have you ever been in or are you currently in a harmful physical or emotional relationship or is someone making you feel afraid or unsafe? Denies 10/28/2024 Comments No Sex and Gender Information Value Date Recorded Sex Assigned at Not on file Legal Sex Female 11:52 PM SKIN CARE CONSULTANT Gender Identity Not on file Sexual Orientation Straight 09/25/2020 5: 07 PM SKIN CARE CONSULTANT Obstetrics History Para Term AB IAB SAB Ectopic Multiple Livin g Live Births 3 2 2 Date Outcome GA Total Labor Labor/2nd/3rd Weight Sex Type Anes PTL Kadie A1 A5 Name Clin Term Term Last Filed Vital Signs Vital Sign Reading Time Taken Comments Blood Pressure 128/82 02/12/2025 9:40 AM CDT Pulse 77 02/12/2025 9:40 AM CDT Temperature 36.7 C (98.1 F) 10/28/2024 9:13 AM SKIN CARE CONSULTANT Respiratory Rate 18 02/12/2025 9:40 AM CDT Oxygen Saturation 99% 02/12/2025 9:40 AM CDT Inhaled Oxygen Concentration - - Weight 98.1 kg (216 lb 3.2 oz) 02/12/2025 9:40 A M CDT Height 160 cm (5' 2.99) 02/12/2025 9:40 AM CDT Body Mass Index 38.31 02/12/2025 9:40 AM CDT Plan of Treatment Health Maintenance Due Date Last Done Comments Zoster Vaccine (1 of 2) 2011 Regular Well Visit/Exam 18-64 06/05/2020, 07/25/2018, 06/10/2017 Pneumococcal vaccine <65 (2 of 2 - PCV) 08/17/2021 08/17/2020 Breast Cancer Screening-Mammogram 10/15/2024 10/15/2023, 10/15/2023, 10/15/2023, Additional history exists Foot Exam 03/31/2025 03/31/2024, 05/2024, 06/10/2017, Additional history exists Influenza Vaccine (#1) 2025 , 08/17/2020, 08/25/2019, Additional history exists Hemoglobin A1C 08/08/2025 02/05/2025, 06/25, 03/26/2024, Additional history exists Dilated Eye Exam 09/18/2025 09/18/2024, , 07/22/2023, Additional history exists Albumin Creatinine Ratio, Urine 02/05/2026 02/05/2025, 07/09/2024, 07/01/2023 Lipid Panel 02/05/2026 02/05/2025, 06/25, 03/26/2024, Additional history exists eGFR 02/05/2026 02/05/2025, 06/25, 03/26/2024, Additional history exists Depression Screening 02/12/2026 02/12/2025, 07/17/2024, 03/31/2024, Additional history exists Osteoporosis Screening-Bone Density Scan 04/09/2026 04/09/2024 DTaP/Tdap/Td Vaccine (2 - Td or Tdap) 09/21/2031 09/21/2021 Colon Cancer Screening-Colonoscopy 02/10/2032 02/09/2022 Hepatitis C Screening Completed 11/06/2021 Colon Cancer Screening-CT Colonography Discontinued 02/09/2022 Colon Cancer Screening-DNA Stool Discontinued 02/10/20 Colon Cancer Screening-FIT Discontinued 02/09/2022 Colon Cancer Screening-Sigmoidoscopy Discontinued 02/09/2022 Medical Devices Implanted Type Area Finish Mender Device Identifier Shelf Expiration Date Model / Serial / Lot [employer]aha Hearing Implants Bilatera l: Ear Loop Recorder N/A: Chest Cochlear [employer] Hearing Aid Abutment Bone Anchored Auditory Osseointegrated 2 Stage Surgery System Baha 4mm Titanium [id number] - [id number] Implanted:Qty: 1 on 10/28/2024 by Eldon Thayer MD at [facility] [employer] [id number] 03/11/2029 [id number] / / [id number] [employer]chlear [employer] Implant Cochlear [id number] - [id number] - [id number] Implanted:Qty: 1 on 10/28/2024 by Eldon Thayer MD at [facility] [employer] 09/16/2026 [id number] / [id number] / Procedures Procedure Name Priority Date/Time Associated Diagnosis Comments HEMOGLOBIN A1C Routine 02/05/2025 5:43 PM CDT Type 2 diabetes mellitus without complication, without long-term current use of insulin (HCC) EGFR Routine 02/05/2025 12:00 AM CDT Type 2 diabetes mellitus without complication, without long-term current use of insulin (HCC) LIPID PANEL Routine 02/05/2025 12:00 AM CDT Mixed hyperlipidemia ALBUMIN CREATININE RATIO, URINE Routine 02/05/2025 12:00 AM CDT Type 2 diabetes mellitus without complication, without long-term current use of insulin (HCC) DEXA AXIAL SKELETON BONE DENSITY 1 OR MORE SITES Schedule Routine, Read Routine (OP Routine) 04/09/2024 10:09 AM CDT Encounter for screening for osteoporosis DIABETIC EYE EXAM Routine 02/13/2024 SCREENING MAMMOGRAM BILATERAL W DAMEON Schedule Routine, Read Routine (OP Routine) 10/15/2023 COLONOSCOPY 02/09/2022 9:35 AM CDT HEPATITIS C ANTIBODY Routine 11/06/2021 12:07 PM SKIN CARE CONSULTANT Annual physical exam HM DIABETES FOOT EXAM Routine 06/10/2017 from Last 3 Months or Most Recently Relevant to Health Maintenance Results * (ABNORMAL) Hemoglobin A1c (02/05/2025 5:43 PM CDT) Hgb A1C 5.7(H) 4.0 - 5.6 % Estimated Average Glucose 117 mg/dL JUNIOR MAGALLANES Comment: The ADA recommends reporting an estimated Average Glucose (eAG) with all Hemoglobin A1c results using the equation derived from a study of 507 normal and diabetic adults. Minority populations were underrepresented and children were not included. (Diabetes Care 31:3482-3820, 2008). The eAG is not equivalent to a fasting glucose. Blood 02/05/2025 5:43 PM CDT 02/05/2025 5:43 PM CDT us Cora Aaron NP LAB BLOOD ORDERABLES Final Resul t JUNIOR MAGALLANES [address] [place] [address] * eGFR (02/05/2025 12:00 AM CDT) eGFR >90 >=60 mL/min/1. 73 m2 Comment: Interpretive Data Reference Interval Normal >/= 90 mL/min/1.73m2 Mildly decreased* 60 - 89 mL/min/1.73m2 Mildly to moderately decreased 45 - 59 mL/min/1.73m2 Moderately to severely decreased 30 - 44 mL/min/1.73m2 Severely decreased 15 - 29 mL/min/1.73m2 Kidney Failure < 15 mL/min/1.73m2 *Relative to young adult level Estimated glomerular filtration rate is determined by the 2020 CKD-EPI equation recommended by the National Kidney Foundation (A Unifying Approach to GFR Estimation: Recommendations of the NKF-ASK Task Force on Reassessing the Inclusion of Race in Diagnosing Kidney Disease, JASN 2020). The CKD-EPI equation should not be used for patients with unstable renal function and has not been validated in children and those over 70. Current interpretive data was last reviewed 2021. Blood 02/05/2025 02/05/2025 4:2 3 PM CDT Corakamaljit Aaron UNITIZER LAB BLOOD ORDERABLES Final Resul t Performing Organization Address [facility] de Phone Number JUNIOR [address] [facility] [place] [address] * Albumin Creatinine Ratio, Urine (02/05/2025 12:00 AM CDT) Albumin Ur <12.0 mg/L Comment: Interpretive Data No reference range established. Current interpretive data was last revised 2019. Creatinine Ur 90.6 mg/dL JUNIOR Comment: Interpretive Data No reference range established. Current interpretive data was last revised 2019. Albumin Creatinine Ratio, Ur <13 1 - 29 mg/g [facility] Urine 02/05/2025 02/05/2025 3:5 0 PM CDT Corakamaljit Aaron UNITIZER LAB URINE ORDERABLES Final Resul t Performing Organization Address [facility] de Phone Number JUNIOR [address] [place] [address] * (ABNORMAL) Lipid panel (02/05/2025 12:00 AM CDT) Cholesterol 193 30 - 199 mg/dL Comment: Interpretive Data Ages < or = 19 years Acceptable: <170 mg/dL Borderline high: 170-199 mg/dL High: >or= 200 mg/dL Ages > or = 20 years Desirable: <200 mg/dL Borderline high: 200-239 mg/dL High: >or= 240 mg/dL Literature References: 1. Expert Panel on Integrated Guidelines for Cardiovascular Health and Risk Reduction in Children and Adolescents. Pediatrics 2011;128:S213 2. NCEP Expert Panel. Circulation 2004;110:227 Current Interpretive Data was last revised on 2018. Triglycerides 166(H) <=149 mg/dL [facility] Comment: Interpretive Data Ages < or = 9 years Acceptable: <75 mg/dL Borderline high: 75-99 mg/dL High: >or= 100 mg/dL Ages 10 to 20 years Acceptable: <90 mg/dL Borderline high: 90-129 mg/dL High: >or= 130 mg/dL Ages > or = 20 years Desirable: <150 mg/dL Borderline high: 150-199 mg/dL High: 200-499 mg/dL Very high: >or= 499 mg/dL Literature References: 1. Expert Panel on Integrated Guidelines for Cardiovascular Health and Risk Reduction in Children and Adolescents. Pediatrics 2011;128:S213 2. NCEP Expert Panel. Circulation 2004;110:227 Current Interpretive Data was last revised on 2018. HDL 51 >=40 mg/dL JUNIOR Comment: Interpretive Data Ages < or = 19 years Acceptable: >45 mg/dL Borderline low: 40-45 mg/dL Low: <40 mg/dL Ages > or = 20 years Desirable: >or= 60 mg/dL Low: <40 mg/dL Literature References: 1. Expert Panel on Integrated Guidelines for Cardiovascular Health and Risk Reduction in Children and Adolescents. Pediatrics 2011;128:S213 2. NCEP Expert Panel. Circulation 2004;110:227 Current Interpretive Data was last revised on 2018. LDL, calculated 113 <=129 mg/dL JUNIOR Comment: Interpretive Data Ages < or = 19 years Acceptable: <110 mg/dL Borderline high: 110-129 mg/dL High: >or= 130 mg/dL Ages > or = 20 years Optimal: <100 mg/dL Near optimal: 100-129 mg/dL Borderline high: 130-159 mg/dL High: >160 mg/dL Calculated using the Virgilio LDL-C estimating equation. This equation was implemented on 2024. Prior to this date LDL-C was estimated using the Friedewald equation. Literature References: 1. Expert Panel on Integrated Guidelines for Cardiovascular Health and Risk Reduction in Children and Adolescents. Pediatrics 2011;128:S213 2. NCEP Expert Panel. Circulation 2004;110:227 3. Virgilio Rosado al. BLANCA Cardiol. 2020 March 25;5(5):540-548. doi: 10.1001/jamacardio.2020.0013 Current Interpretive Data was last revised on 2024. Non-HDL Cholesterol 142 mg/dL JUNIOR Comment: Interpretive Data Ages < or = 19 years Acceptable: <120 mg/dL Borderline high: 120-144 mg/dL High: >145 mg/dL Ages > or = 20 years When triglycerides are >200 mg/dL, Non-HDL cholesterol is a secondary target of therapy with treatment goals that are 30 mg/dL greater than the LDL cholesterol target. Literature References: 1. Expert Panel on Integrated Guidelines for Cardiovascular Health and Risk Reduction in Children and Adolescents. Pediatrics 2011;128:S213 2. NCEP Expert Panel. Circulation 2004;110:227 Current Interpretive Data was last revised on 2018. Chol/HDL ratio 4 JUNIOR Blood 02/05/2025 02/05/2025 3:5 1 PM CDT us Cora Aaron NP LAB BLOOD ORDERABLES Final Resul t JUNIOR [address] [place] [address] * Dexa Axial Skeleton Bone Density 1 Or 2 Site (04/09/2024 10:09 AM CDT) Anatomical Region Laterality Modality Body N/A Other 04/09/2024 4:06 PM CDT Narrative 04/09/2024 4:07 PM CDT EXAM DESCRIPTION: DEXA AXIAL SKELETON BONE DENSITY 1 OR MORE SITES REASON FOR STUDY: 63 y/o year old F with given history of: Bone density screening, asymptomatic Screening. Postmenopausal Finish Mender/Model: [employer] SL (S/N [id number]) CLINICAL INFORMATION: Current height: 64 inches Maximum height: 65 inches Weight: 217 pounds Risk factors: Postmenopausal, parental hip fracture COMPARISON: None available FINDINGS: AP LUMBAR SPINE L1-L4: Total BMD is 0.954 g/cm2 T-score is -0.8 LEFT HIP: Total BMD is 0.844 g/cm2 T-score is -0.8 Femoral neck BMD is 0.585 g/cm2 T-score is -2.4 FRAX: 10 year risk for a major osteoporotic fracture is 20 %, 10 year risk for a hip fracture is 1.8 % IMPRESSION: Low Bone Mass. REFERENCE: Bone mineral density: T-Score: Normal (T-score above or = -1.0) Low bone mass (T-score between -1.0 and -2.5) replaces the previously used term osteopenia Osteoporosis (T-score = or below -2.5) Z-Score: Within the expected range for age (Z-score above -2.0) Below the expected range for age (Z-score is -2.0 or below) Please see below follow up recommendations. Medical evaluation for secondary causes of low bone mineral density may be appropriate. FRAX is a World Health Organization validated fracture risk assessment tool that calculates a person's 10 year probability of a major osteoporosis related fracture and hip fracture. According to the National Osteoporosis Foundation guidelines, postmenopausal women and men age 50 or older with low bone mass and a 10 year probability of a major osteoporosis related fracture = or greater than 20% or a 10 year probability of a hip fracture = or greater than 3% should be considered for pharmacological treatment for the prevention of osteoporosis. For further information, including treatment recommendations, please refer to the 2019 ISCD Official Positions (http://www.iscd.org) and the NOF's Clinician's Guide to Prevention and Treatment of Osteoporosis (http://www.nof.org/professionals/clinical-guidelines) THIS IS AN ELECTRONICALLY VERIFIED FINAL REPORT 04/09/2024 4:07 PM - Electronically signed by Stanley Montes M.D. MF: ELOY Report ID: [id number] Reading Location: [address] Note Stanley Montes MD - 04/09/2024 EXAM DESCRIPTION: DEXA AXIAL SKELETON BONE DENSITY 1 OR MORE SITES REASON FOR STUDY: 63 y/o year old F with given history of: Bonedensity screening, asymptomatic Screening. Postmenopausal Finish Mender/Model: [employer] Discovery SL (S/N [id number]) CLINICAL INFORMATION: Current height: 64 inches Maximum height: 65 inches Weight: 217 pounds Risk factors: Postmenopausal, parental hip fracture COMPARISON: None available FINDINGS: AP LUMBAR SPINE L1-L4: Total BMD is 0.954 g/cm2 T-score is -0.8 LEFT HIP: Total BMD is 0.844 g/cm2 T-score is -0.8 Femoral neck BMD is 0.585 g/cm2 T-score is -2.4 FRAX: 10 year risk for a major osteoporotic fracture is 20 %, 10 year risk for ahip fracture is 1.8 % IMPRESSION: Low Bone Mass. REFERENCE: Bone mineral density: T-Score: Normal (T-score above or = -1.0) Low bone mass (T-score between -1.0 and -2.5) replaces thepreviously used term osteopenia Osteoporosis (T-score = or below -2.5) Z-Score: Within the expected range for age (Z-score above -2.0) Below the expected range for age (Z-score is -2.0 or below) Please see below follow up recommendations. Medical evaluation forsecondary causes of low bone mineral density may be appropriate. FRAX is a World Health Organization validated fracture risk assessmenttool that calculates a person's 10 year probability of a major osteoporosisrelated fracture and hip fracture. According to the National OsteoporosisFoundation guidelines, postmenopausal women and men age 50 or older with low bonemass and a 10 year probability of a major osteoporosis related fracture = or greater than 20% or a 10 year probability of a hip fracture = or greaterthan 3% should be considered for pharmacological treatment for the preventionof osteoporosis. For further information, including treatment recommendations, please referto the 2019 ISCD Official Positions (http://www.iscd.org) and the NOF's Clinician's Guide to Prevention and Treatment of Osteoporosis (http://www.nof.org/professionals/clinical-guidelines) THIS IS AN ELECTRONICALLY VERIFIED FINAL REPORT 04/09/2024 4:07 PM - Electronically signed by Stanley Montes M.D. MF: ELOY Report ID: [id number] Reading Location: [place] [address] Cora Aaron NP IMG DXA PROCEDURES Final Result * Diabetic Eye Exam (02/13/2024) Historical Provider HEALTH MAINTENANCE Final Result * Screening Mammogram Bilateral W [place] (10/15/2023) Anatomical Region Laterality Modality Breast Bilateral Mammography us Historical Provider MD LUJAN MAMMO PROCEDURES Allie l Result * COLONOSCOPY (02/09/2022 9:35 AM CDT) Anatomical Region Laterality Modality Other Narrative Procedure Note Yong Diallo MD - 02/09/2022 9:35 AM CDT [facility] Patient Name: Jany Courtney Procedure Date: 02/09/2022 9:35 AM Date of : 1960 Admit Type: Outpatient Age: 61 Gender: Female Attending MD: Yong Diallo M.D. Room: [facility] 2 Note Status: Finalized Patient Profile: Refer to note in patient chart for documentation of history and physical. Procedure: Colonoscopy Indications: Screening for colorectal malignant neoplasm, Last colonoscopy 10 years ago Referring MD: Drake Long M.D. Providers: Yong Diallo M.D. Impression: - Hemorrhoids found on perianal exam. - Two 2 to 3 mm polyps in the descending colon, removed with a jumbo cold forceps. Resected and retrieved. - Diverticulosis in the sigmoid colon and in the descending colon. - The examination was otherwise normal. Recommendation: - Discharge patient to home. - Resume previous diet. - Continue present medications. - Resume Plavix (clopidogrel) at prior dosetomorrow. - Await pathology results. - Repeat colonoscopy in 5 years for surveillance. - Return to primary care physician as previously scheduled. Medicines: Propofol per Anesthesia Complications: No immediate complications. Estimated Blood Loss: Estimated blood loss: none. Procedure: Pre-Anesthesia Assessment: - This assessment was completed [Time ofAssessment] prior to the administration of sedation. The benefits, risks and alternatives of theprocedure and sedation were discussed and informed consentwas obtained. All questions were answered. Please referto the signed informed consent document in the medical record. The scope was passed under direct vision.The Colonoscope [id number] was introducedthrough the anus and advanced to the the cecum, identifiedby appendiceal orifice and ileocecal valve. The bowel preparation used was Miralax via single dose instruction. The bowel preparation used wasbisacodyl tablets via single dose instruction. Thecolonoscopy was performed without difficulty. The patient tolerated the procedure well. The quality of thebowel preparation was excellent. The ileocecal valve, appendiceal orifice, and rectum werephotographed. Findings: Hemorrhoids were found on perianal exam. Two sessile polyps were found in the descending colon. The polypswere 2 to 3 mm in size. These polyps were removed with a jumbo cold forceps. Resection and retrieval were complete. Verification of patient identification for the specimen was done by the physician and nurse using the patient's name and date. Estimated blood loss was minimal. A few small-mouthed diverticula were found in the sigmoid colon and descending colon. The exam was otherwise without abnormality. Electronically signed by Yong Diallo M.D. Yong Diallo M.D. 02/09/2022 11:24:12 AM Number of Addenda: 0 Note Initiated On: 02/09/2022 9:35 AM Procedure Code(s): --- Professional --- 68884, Colonoscopy, flexible; with biopsy, single or multiple Diagnosis Code(s): --- Professional --- K57.30, Diverticulosis of large intestine without perforation orabscess without bleeding D12.4, Benign neoplasm of descending colon K64.9, Unspecified hemorrhoids Z12.11, Encounter for screening for malignant neoplasm of colon CPT copyright 2020 [employer]. All rights reserved. The codes documented in this report are preliminary and upon thermite welder reviewmay be revised to meet current compliance requirements. Recognized by the [employer] for promoting quality in endoscopy Yong Diallo MD ENDOSCOPY PROCEDURES Final Re sult * Hepatitis C antibody (11/06/2021 12:07 PM SKIN CARE CONSULTANT) Hep C Ab Nonreactive Nonreactive JUNIOR MAGALLANES Comment: Interpretive Data Nonreactive: Antibodies to HCV not detected. Does NOT exclude the possibility of recent exposure to HCV. Equivocal: Equivocal for HCV antibodies. Supplemental molecular testing will be automatically performed to determine infection status in accordance with current CDC screening recommendations. Reactive: Positive for HCV antibodies. This may represent current or past HCV infection. Supplemental molecular testing will be automatically performed to determine current infection status in accordance with current CDC screening recommendations. Interpretive data was last revised on 2020. Blood 11/06/2021 12:0 7 PM SKIN CARE CONSULTANT 11/06/2021 8:27 PM SKIN CARE CONSULTANT Drake Long MD LAB MICROBIOLOGY - GENERA L ORDERABLES Final Result JUNIOR MAGALLANES [address] [place] [address] * DIABETES FOOT EXAM (06/10/2017) Diabetic Foot Exam Normal Marianne Byrne MD HEALTH MAINTENANCE Final Result from Last 3 Months or Most Recently Relevant to Health Maintenance Insurance [employer]S [facility] [employer] Advance Directives For more information, please contact: [phone] * Full Code (Latest Code Status on File) Date Activated Date Inactivated Comments 02/09/2022 8:45 AM 02/09/2022 4:15 PM Care Teams Personnel Analyst Relationship Specialty Start Date End Date Drake Long MD [address] [place] [address] PCP - General Family Medicine 08/08/21 Jacob Kuo MD Referring Physician Otolaryngology 11/10/20
--- OUTSIDE RECORDS SUMMARY | 2025-06-15 12:29 | XMS_ITS | Clinical Summary ---
Author Organization [facility] Care Team Providers Care Telephone Worker Name Role Phone Jacob Weir MD Primary Care Provider Allergies Active Allergy Reactions Criticality Noted Date Comments Aspirin Hives,Rash Low Medications diclofenac 50 MG PO TABS Take by mouth. Reported on 04/24/2017 Active furosemide (LASIX) 40 MG PO TABS Take by mouth. Reported on 04/24/2017 Active celecoxib (CELEBREX) 200 MG PO CAPS Take by mouth. Reported on 04/24/2017 Active acetaminophen (TYLENOL) 325 MG Tablet Take by mouth. Reported on 04/24/2017 10/06/2015 Active Cholecalciferol (VITAMIN D3) 1000 units Capsule Take by mouth. Active cyclobenzaprine (FLEXERIL) 10 MG Tablet Take by mouth. Reported on 04/24/2017 10/06/2015 Active hydroCHLOROthia zide 25 MG Tablet Take by mouth. Reported on 04/24/2017 02/14/2016 Active HYDROcodone-hailee taminophen (NORCO) 5-325 MG Tablet Take by mouth. Reported on 04/24/2017 12/16/2015 Active Levothyroxine Sodium 25 MCG Capsule Take by mouth. Reported on 04/24/2017 Active levothyroxine (SYNTHROID) 75 MCG Tablet TK 1 T PO QD 9 03/18/2017 Activ e losartan (COZAAR) 25 MG Tablet Take by mouth. Reported on 04/24/2017 01/16/2016 Active losartan potassium-hydro chlorothiazide (HYZAAR) 100-25 MG Tablet TK 1 T PO QD 9 03/18/2017 Active Meloxicam 15 MG Tablet Take by mouth. 10/27/2015 Active naproxen (NAPROSYN) 500 MG Tablet Take by mouth. 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 Family History Medical History Relation Name Comments Breast Cancer Paternal Grandmother Relation Name Status Comments Paternal Grandmother Social History Tobacco Use Types Packs/Day Years Used Date Smoking Tobacco: Never Alcohol Use Standard Drinks/Week Comments No 0 (1 standard drink = 0.6 oz pur e alcohol) Comments No Sex and Gender Information Value Date Recorded Sex Assigned at Not on file Legal Sex Female 1:46 PM CDT Gender Identity Not on file Sexual Orientation Not on file Last Filed Vital Signs Vital Sign Reading Time Taken Comments Blood Pressure 136/84 11/13/2017 3:52 PM HANDMADE TILE ARTIST Pulse 87 11/13/2017 3:52 PM HANDMADE TILE ARTIST Temperature - - Respiratory Rate 16 11/13/2017 3:52 PM HANDMADE TILE ARTIST Oxygen Saturation 98% 11/13/2017 3:52 PM HANDMADE TILE ARTIST Inhaled Oxygen Concentration - - Weight 107 kg (236 lb) 11/13/2017 3:52 PM HANDMADE TILE ARTIST Height 165.1 cm (5' 5) 11/13/2017 3:52 PM HANDMADE TILE ARTIST Body Mass Index 39.27 11/13/2017 3:52 PM HANDMADE TILE ARTIST Plan of Treatment Health Maintenance Due Date Last Done Comments Hepatitis C Virus (HCV) Screening 1960 TdaP Immunization 1960 Cologuard 2006 Colonoscopy 2006 Colorectal Cancer Screening 2006 Immunochemical Fecal Occult Blood 2006 Pneumococcal Immunization (5 0+ years) (1 of 1 - PCV) 2011 Zoster Immunization (1 of 2) 2011 SARS-COV-2 Immunization (2023-25 season) 2024 Influenza Immunization (#1) 2025 Respiratory Syncytial Virus (RSV) Immunization (Adult) (1 - 1-dose 75+ series) 2036 Mammogram Discontinued 08/25/2016 Hepatitis B Immunization Aged Out No longer eligible based on patient's age to complete this topic Human Papillomavirus (HPV) Immunization Aged Out No longer eligible b ased on patient's age to complete this topic Meningococcal Immunization (ACWY) Aged Out No longer eligible based on patient's age to complete this topic Rotavirus Immunization Aged Out No lo nger eligible based on patient's age to complete this topic Procedures Procedure Name Priority Date/Time Associated Diagnosis Comments EMILIE SCREENING BILATERAL DIGITAL W CAD Routine 08/25/2016 8:40 AM CDT Visit for screening mammogram from Last 3 Months or Most Recently Relevant to Health Maintenance Results * EMILIE SCREENING BILATERAL DIGITAL W CAD (08/25/2016 8:40 AM CDT) Anatomical Region Laterality Modality breast Bilateral Mammography 08/25/2016 8:12 AM CDT Narrative 08/28/2016 7:20 AM CDT - EMILIE SCREENING BILATERAL DIGITAL W CAD BILATERAL DIGITAL SCREENING MAMMOGRAM WITH CAD WITH MEDIOLATERAL OBLIQUE CRANIOCAUDAL: 08/25/2016 The study was acquired using digital technology and interpreted from soft copy. Current study was also evaluated with ICAD version 7.2. CLINICAL: Routine screening. Patient has no complaints. No personal history of cancer. Paternal grandmother had breast cancer. COMPARISONS: Comparison is made to exams dated: 09/25/2014 and 08/01/2012 [facility]. BREAST TISSUE:The tissue of both breasts is predominantly fatty. FINDINGS: No significant masses, calcifications, or other findings are seen in either breast. There has been no significant interval change. IMPRESSION: BI-RAD 1 NEGATIVE There is no mammographic evidence of malignancy. A 1 year screening mammogram is recommended. The patient has been or will be contacted. The patient will be entered into a reminder system with a target due date of 1 year for her next screening exam. Electronically signed by: Leander Steven M.D. al/penrad:08/27/2016 08:36:03 Filler Sifter Machine: Kayla Kidd (R), [facility] letter sent: Normal Exam Reading location: [facility] BI-RADS: 1 Negative Procedure Note Leander Steven MD - 08/28/2016 - EMILIE SCREENING BILATERAL DIGITAL W CAD BILATERAL DIGITAL SCREENING MAMMOGRAM WITH CAD WITH MEDIOLATERAL OBLIQUE CRANIOCAUDAL: 08/25/2016 The study was acquired using digital technology and interpreted from soft copy. Current study was also evaluated with ICAD version 7.2. CLINICAL: Routine screening. Patient has no complaints. No personal history of cancer. Paternal grandmother had breast cancer. COMPARISONS: Comparison is made to exams dated: 09/25/2014 and 08/01/2012 [facility]. BREAST TISSUE:The tissue of both breasts is predominantly fatty. FINDINGS: No significant masses, calcifications, or other findings are seen in either breast. There has been no significant interval change. IMPRESSION: BI-RAD 1 NEGATIVE There is no mammographic evidence of malignancy. A 1 year screening mammogram is recommended. The patient has been or will be contacted. The patient will be entered into a reminder system with a target due date of 1 year for her next screening exam. Electronically signed by: Leander Steven M.D. al/penrad:08/27/2016 08:36:03 Filler Sifter Machine: Kayla Kidd (R), [facility] letter sent: Normal Exam Reading location: [facility] BI-RADS: 1 Negative us Rito Chawla MD IMG MAMMO ORDERABLES Final Result from Last 3 Months or Most Recently Relevant to Health Maintenance Insurance [facility] Care Teams Telephone Worker Relationship Specialty Start Date End Date Jacob Weir MD [address] [place] [address] PCP - General Internal Medicine 08/09/16
--- OUTSIDE RECORDS SUMMARY | 2025-06-15 12:30 | XMS_ITS | Referral Summary ---
Author Organization [facility] Medical Office Building A Address [address] [place] [address] Care Team Providers Care Material Mixer Name Role Phone Jacob Kuo MD Unavailable Drake Long MD Primary Care Provider [phone] Encounters Date Type Department Care Team Description 04/05/2025 Telephone [facility] [address] [address] Karishma العلي NP Authorization/Certifica tion from Last 3 Months Allergies Active Allergy Reactions Criticality Noted Date Comments Adhesive Rash Medium 09/01/2024 Aspirin Rash,Other (See comments) Medium Reaction: Rash, , Reaction: Rash, , Reaction: Rash, , Reaction: Rash, , Reaction: Unknown, , Reaction: RASH, Jvniaga-Zib-Sly Reductase Inhibitors Muscle pain Medium 07/17/2024 Medications cholecalcifero l (VITAMIN D-3) 85081 unit capsuleIndicat ions:Preventio n of Vitamin D Deficiency Take 1 capsule (10,000 Units total) by mouth mounter clarinets before breakfast 11/25/19 19 Active clotrimazole-b etamethasone (LOTRISONE) cream Apply topically 2 (two) times a day 15 g 3 07/01/20 23 Active OneTouch Delica Plus Lancet 33 gauge miscIndication s:Type 2 diabetes mellitus without complication, without long-term current use of insulin ([facility]) 1 each by other route 2 (two) [...] complication, without long-term current use of insulin ([facility]) Inject 0.5 mL (7.5 mg total) under [...] & Plan (09/18/2024 11:56 AM CDT): -s/p AD GUEVARA with Dr. Romeo -not yet visually significant; [...] 12/25/2021 Assessment & Plan (12/25/2021 3:12 PM CARTOGRAPHIC DRAFTER): Patient follows with Nephrology for management nephrolithiasis; most recent imaging demonstrated several small 7 mm stones as well as possible mild lipoma Will continue to follow-up imaging results and recommendations from Urology Bilateral lower extremity edema 11/07/2021 Assessment & Plan (11/07/2021 1:51 PM CARTOGRAPHIC DRAFTER): Patient has worsening edema, pain and itching [...] controlled. Assessment & Plan (11/07/2021 1:52 PM CARTOGRAPHIC DRAFTER): Patient has worsening right shoulder pain, previously [...] Will continue to monitor. Will be seeing Contracts Officer soon to establish care. Orders: tirzepatide (Mounjaro) [...] month Assessment & Plan (12/25/2021 3:10 PM CARTOGRAPHIC DRAFTER): Stable, improving; A1c is decreased 8.9 since [...] Monjauro Assessment & Plan (11/07/2021 1:53 PM CARTOGRAPHIC DRAFTER): Patient reports recent weight gain however may [...] With she is wanting to see somewhat [facility] possible as she has previously seen Dr. [...] daily Assessment & Plan (11/07/2021 1:52 PM CARTOGRAPHIC DRAFTER): Stable, well controlled; blood pressure at target [...] daily Assessment & Plan (11/07/2021 1:53 PM CARTOGRAPHIC DRAFTER): Stable, well controlled; continue levothyroxine 100 mcg daily Assessment & Plan (08/08/2021 4:26 PM CDT): Stable, will continue levothyroxine 100 mcg; check TSH at follow-up appointment Chronic diastolic heart failure ([facility]) 2013 Assessment & Plan (02/12/2025 10:47 AM CDT): Stable and controlled. No peripheral swelling noted. Will continue on Plavix. Assessment & Plan (07/01/2023 1:07 PM CDT): Stable, well controlled; no significant peripheral edema Assessment & Plan (12/25/2021 3:09 PM CARTOGRAPHIC DRAFTER): Stable, improving; patient reports decreased peripheral edema [...] daily Assessment & Plan (11/07/2021 1:53 PM CARTOGRAPHIC DRAFTER): Stable, continue pravastatin 20 mg daily Assessment [...] (09/27/2021): Added automatically from request for surgery [id number] Boil of buttock 04/06/2019 03/31/2024 Overview (04/06/2019): See problem noted above. Assessment & Plan (04/06/2019 9:11 AM CDT): Keflex 50mmg 1 tab QID x 10 days; pt is on prophylactic Duricef ; pharmacist at [facility] called and reminded him that she is on Duricef----states that he will appropriately skilled nursing facility counselor her on taking the Keflex; pt [...] (03/02/2017): Obstructive sleep apnea syndrome in adult Immunizations Immunization Administration Dates Next Due Hep A / Hep B 11/22/2009 Influenza, Quadrivalent, Spl it, Preservative Free, Intramuscular 10/03/2021,08/17/2020,09/04/2017,10/06 Influenza, Unspecified 02/12/2025(Deferr ed: Patient Refused),07/26/2024(Deferred: Patient Refused),09/26/2023(Deferred: Patient Refused),02/22/2023(Deferred: Patient Refused),08/25/2022(Deferred: Patient Refused),11/25/2021(Deferred: Patient Refused),08/08/2021(Deferred: Patient Refused),11/25/2020(Deferred: Patient Refused),08/25/2019,02/02/2019(Deferre d: Patient Refused),09/04/2017 Pneumococcal Polysaccharide PPV23 08/17/2020 Tdap 09/21/2021 Social History Tobacco Use Types Packs/Day Years [...] on file Legal Sex Female 11:52 PM CARTOGRAPHIC DRAFTER Gender Identity Not on file Sexual Orientation Straight 09/25/2020 5: 07 PM CARTOGRAPHIC DRAFTER Last Filed Vital Signs Vital Sign Reading Time Taken Comments Blood Pressure 128/82 02/12/2025 9:40 AM CDT Pulse 77 02/12/2025 9:40 AM CDT Temperature 36.7 C (98.1 F) 10/28/2024 9:13 AM CARTOGRAPHIC DRAFTER Respiratory Rate 18 02/12/2025 9:40 AM CDT Oxygen Saturation 99% 02/12/2025 9:40 AM CDT Inhaled Oxygen Concentration - - Weight 98.1 kg (216 lb 3.2 oz) 02/12/2025 9:40 A M CDT Height 160 cm (5' 2.99) 02/12/2025 9:40 AM CDT Body Mass Index 38.31 02/12/2025 9:40 AM CDT Plan of Treatment Not on file Medical Devices Implanted Type Area [employer] Senior [employer] Device Identifier Shelf Expiration Date Model / Serial / Lot Baha Hearing Implants Bilatera l: Ear Loop Recorder N/A: Chest [employer]chle[employer] Hearing Aid Abutment Bone Anchored Auditory Osseointegrated 2 Stage Surgery System Baha 4mm Titanium [id number] - [id number] Implanted:Qty: 1 on 10/28/2024 by Eldon Thayer MD at [facility] [place] [employer] [id number] 03/11/2029 [id number] / / [id number] [employer]chle[employer] Implant Cochlear [id number] - [id number] - [id number] Implanted:Qty: 1 on 10/28/2024 by Eldon Thayer MD at [facility] [place] [employer] 09/16/2026 [id number] / [id number] / Procedures Procedure Name Priority Date/Time [...] HEPATITIS C ANTIBODY Routine 11/06/2021 12:07 PM CARTOGRAPHIC DRAFTER Annual physical exam DIABETES FOOT EXAM Routine 06/10/2017 from Last [...] and children were not included. (Diabetes Care 31:8256-3848, 2008). The eAG is not equivalent to a fasting glucose. Blood 02/05/2025 5:43 PM CDT 02/05/2025 5:43 PM CDT us Cora Aaron NP LAB BLOOD ORDERABLES Final Resul t JUNIOR MAGALLANES [address] Department [place] [address] * eGFR (02/05/2025 12:00 AM CDT) eGFR [...] Blood 02/05/2025 02/05/2025 4:2 3 PM CDT Cora Aaron NP LAB BLOOD ORDERABLES Final Resul t Performing Organization Address [facility] de Phone Number IVANBRIANA MAGALLANES [address] [employer] [place], [place] [id number] * Albumin Creatinine Ratio, Urine (02/05/2025 12:00 AM CDT) Albumin Ur <12.0 mg/L Comment: Interpretive Data No reference range established. Current interpretive data was last revised 2019. Creatinine Ur 90.6 mg/dL JUNIOR Comment: Interpretive Data No reference range established. Current interpretive data was last revised 2019. Albumin Creatinine Ratio, Ur <13 1 - 29 mg/g JUNIOR MAGALLANES Urine 02/05/2025 02/05/2025 3:5 0 PM CDT Cora Aaron NP LAB URINE ORDERABLES Final Resul t Performing Organization Address [facility] Co de Phone Number JUNIOR SONA [address] [employer] [place], [place] [id number] * (ABNORMAL) Lipid panel (02/05/2025 12:00 AM [...] revised on 2018. Triglycerides 166(H) <=149 mg/dL JUNIOR Comment: Interpretive Data Ages < [...] mg/dL High: >160 mg/dL Calculated using the Poole LDL-C estimating equation. This equation was implemented on 2024. Prior to this date LDL-C was estimated using the Friedewald equation. Literature References: 1. Expert Panel on Integrated Guidelines for Cardiovascular Health and Risk Reduction in Children and Adolescents. Pediatrics 2011;128:S213 2. NCEP Expert Panel. Circulation 2004;110:227 3. Virgilio M et al. BLANCA Cardiol. 2020 March 25;5(5):540-548. doi: 10.1001/jamacardio.2020.0013 Current Interpretive Data was last revised on 2024. Non-HDL Cholesterol 142 mg/dL JUNIOR MAGALLANES Comment: Interpretive Data Ages < or = [...] LAB BLOOD ORDERABLES Final Resul t JUNIOR [address] Department [place] [address] * Dexa Axial Skeleton Bone Density 1 Or 2 Site (04/09/2024 10:09 AM CDT) Anatomical Region Laterality Modality Body N/A Other 04/09/2024 4:06 PM CDT Narrative 04/09/2024 4:07 PM CDT EXAM DESCRIPTION: DEXA AXIAL SKELETON BONE DENSITY 1 OR MORE SITES REASON FOR STUDY: 63 y/o year old F with given history of: Bone density screening, asymptomatic Screening. Postmenopausal [employer] Senior Officer/Model: Logic[employer] SL (S/N [id number]) CLINICAL INFORMATION: Current height: 64 inches Maximum [...] Stanley Montes M.D. MF: ELOY Report ID: [id number] Reading Location: [address] Note Stanley Montes MD - 04/09/2024 EXAM DESCRIPTION: DEXA AXIAL SKELETON BONE DENSITY 1 OR MORE SITES REASON FOR STUDY: 63 y/o year old F with given history of: Bonedensity screening, asymptomatic Screening. Postmenopausal [employer] Senior Officer/Model: Waggl Discovery SL (S/N [id number]) CLINICAL INFORMATION: Current height: 64 inches Maximum [...] Stanley Montes M.D. MF: ELOY Report ID: [id number] Reading Location: [place] [address] us Cora Aaron NP IMG DXA PROCEDURES Final Result * Diabetic Eye Exam (02/13/2024) Historical Provider HEALTH MAINTENANCE Final Result * Screening Mammogram Bilateral [place] (10/15/2023) Anatomical Region Laterality Modality Breast Bilateral Mammography Historical Provider IMG MAMMO PROCEDURES Allie l Result * COLONOSCOPY (02/09/2022 9:35 AM CDT) Anatomical Region Laterality Modality Other Narrative Procedure Note Yong Diallo MD - 02/09/2022 9:35 AM CDT [facility] Patient Name: Jany Courtney Procedure Date: 02/09/2022 9:35 AM Date of : 1960 Admit Type: Outpatient Age: 61 Gender: Female Attending MD: Yong Diallo M.D. Room: [facility]COPY ROOM 2 Note Status: Finalized Patient [...] scope was passed under direct vision.The Colonoscope [id number] was introducedthrough the anus and advanced to [...] 9:35 AM Procedure Code(s): --- Professional --- 20205, Colonoscopy, flexible; with biopsy, single or multiple Diagnosis Code(s): --- Professional --- K57.30, Diverticulosis of large intestine without perforation orabscess without bleeding D12.4, Benign neoplasm of descending colon K64.9, Unspecified hemorrhoids Z12.11, Encounter for screening for malignant neoplasm of colon CPT copyright 2020 [employer]. All rights reserved. The codes documented in this report are preliminary and upon inside account executive reviewmay be revised to meet current compliance requirements. Recognized by the [employer] for promoting quality in endoscopy Yong Diallo MD ENDOSCOPY PROCEDURES Final Re sult * Hepatitis C antibody (11/06/2021 12:07 PM CARTOGRAPHIC DRAFTER) Hep C Ab Nonreactive Nonreactive JUNIOR MAGALLANES [...] on 2020. Blood 11/06/2021 12:0 7 PM CARTOGRAPHIC DRAFTER 11/06/2021 8:27 PM CARTOGRAPHIC DRAFTER Drake Long MD LAB MICROBIOLOGY - GENERA L ORDERABLES Final Result JUNIOR MAGALLANES [address] Department [place] [address] * DIABETES FOOT EXAM (06/10/2017) Diabetic Foot Exam Normal us Historical Provider HEALTH MAINTENANCE Final Result from Last 3 Months or Most Recently Relevant to Health Maintenance Insurance [employer] [facility] [employer] Address: [place] [id number] [employer] Address: [place] [id number] [place] [id number] [facility] CLAIMS [employer] [facility] CLAIMS [employer] [facility] CLAIMS Advance Directives For more information, please contact: [phone] * Full Code (Latest Code Status on File) Date Activated Date Inactivated Comments 02/09/2022 8:45 AM 02/09/2022 4:15 PM Care Teams Material Mixer Relationship Specialty Start Date End Date Drake Long MD [address] [place] [address] PCP - General Family Medicine 08/08/21 Jacob Kuo MD Referring Physician Otolaryngology 11/10/20
--- OUTSIDE RECORDS SUMMARY | 2025-06-15 12:30 | XMS_ITS | Encounter Summary ---
Author Organization [facility] Address [address] [place] [address] Care Team Providers Care Manager Intel Name Role Phone Jacob Weir MD Primary Care Provider Encounter Details Date Type Department Care Team (Late st Contact Info) Description 03/29/2022 Lab Requisition [facility] Care DermPath Lab [address] [facility], [place] [phone] Linwood Marques Jr., MD [address] 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 Answer Date of Assessment Author Yes 10/05/2015 9:00 PM DITCHER OPERATOR Elyse Yost RN * Is person blind or have serious difficulty seeing? Answer Date of Assessment Author No 10/05/2015 9:00 PM Elyse George RN * Does person have serious difficulty walking/climbing stairs? Answer Date of Assessment Author No 10/05/2015 9:00 PM Elyse George RN * Does person have difficulty dressing/bathing? Answer Date of Assessment Author No 10/05/2015 9:00 PM Elyse George RN * Does person have difficulty doing errands alone? Answer Date of Assessment Author No 10/05/2015 9:00 PM Elyse George RN documented as of this encounter Mental Status * Does person have difficulty concentrating/remembering/making decisions? Answer Entry Date Author No 10/05/2015 9:00 PM Elyse George RN documented in this encounter Plan of Treatment Not on file documented as of this encounter Procedures Procedure Name Priority Date/Time Associated Diagnosis Comments DERMATOPATHOLOGY Routine 03/29/2022 12:0 0 AM CDT documented in this encounter Results * DERMATOPATHOLOGY (03/29/2022 12:00 AM CDT) Case Report Dermatopathology Report Case: [id number] Authorizing Provider: Linwood Marques Jr., MD Collected: 03/29/2022 12:00 AM Ordering Location: [facility] DermPath Lab Received: 03/29/2022 11:54 AM Pathologist: Joe Velazquez MD Specimen: Skin, left anterior lateral proximal thigh 2 6:28 PM CDT DERMATOPATHOLOGY LABORATORY Final Diagnosis Specimen A. SKIN, left anterior lateral proximal thigh: DERMAL SCAR RESIDUAL BASAL CELL CARCINOMA NOT IDENTIFIED (L90.5) 2 6:28 PM CDT DERMATOPATHOLOGY LABORATORY at 1828 CDT Clinical History Basal cell carcinoma. Check margins. . 2 6:28 PM CDT DERMATOPATHOLOGY LABORATORY Gross Description Specimen A: Received is one formalin filled container labeled with the patient's name and designated left anterior lateral proximal thigh.The specimen consists of an ellipse measuring [id number] and is oriented with the suture at the 3 o'clock position labeled on the requisition as suture superior. The 12 to 6 o'clock margin is inked green. The 6 o'clock to 12 o'clock margin is inked black. The 12 o'clock tip is submitted in cassette 1. The 6 o'clock tip is submitted in cassette 2. The remainder of the ellipse is serially sectioned and submitted in cassettes 3-5. Jar 0. 2 6:28 PM CDT DERMATOPATHOLOGY LABORATORY Microscopic Description Specimen A. SKIN, left anterior lateral proximal thigh: There are fibroblasts and collagen bundles oriented parallel to the skin surface. There are elongated blood vessels, some of which are oriented perpendicular to the skin surface. No basal cell carcinoma is identified. 2 6:28 PM CDT DERMATOPATHOLOGY LABORATORY Disclaimer An external and internal positive and negative controls are appropriate for the histochemical, immunohistochemical and immunofluorescence stain(s) in this case (if any), except where stated explicitly. The performance characteristics of the stain(s) cited in this report were developed and its performance characteristic determined by the Dermatopathology Laboratory at [facility], directed by Dr. Adelaida Velazquez. These tests need not be, and therefore are not, approved by the [place] Food and Drug Administration. The tests are used for clinical purposes. Billing Codes Specimen Charges Stain Charges 36817 1 2 6:28 PM CDT DERMATOPATHOLOGY LABORATORY Embedded Images 2 6:28 PM CDT DERMATOPATHOLOGY LABORATORY Pathology/Cytolog y TISSUE SPECIMEN FROM SKIN / Unknown 03/29/2022 03/29/2022 11:54 AM CDT Linwood Marques Jr., MD LAB - PATHOLOGY/CYTOLOG Y ORDERABLES Final Result DERMATOPATHOLOGY LABORATORY [facility] - Department of Dermatology [address] [place] [address], [facility] [phone] documented in this encounter Visit Diagnoses Not on filedocumented in this encounter Care Teams Manager Intel Relationship Specialty Start Date End Date Jacob Weir MD [address] [facility] [address] [place] [id number] PCP - General 01/09/21 documented as of this encounter
--- OUTSIDE RECORDS SUMMARY | 2025-06-15 12:30 | XMS_ITS | Clinical Summary ---
Author Organization [facility] Address [address] [facility] [place] [address] Care Team Providers Care Manager Endoscopy Name Role Phone Jacob Weir MD Primary Care Provider Source Comments [facility],non-owned Affiliates and Associated Physician Practices is amultiple site organization consisting of ambulatory clinics and hospital sitesin [place], [place], [place] and [place]. This disclosure is being madepursuant to the Care Everywhere program and may not contain all information available regarding this patient. Last updated 18.[facility] Allergies Active Allergy Reactions Criticality Noted Date Comments Aspirin Rash Low 09/22/2015 Medications * Be aware that medications may not be up to date on this document. Alwaysverify current medications with the patient. Cholecalciferol (VITAMIN D-3 PO) Take 10,000 Units by mouth once daily Active modafinil (PROVIGIL) 200 MG tablet 200 mg once daily 07/22/2014 Active Biotin 63304 MCG TABS Take 10,000 mcg by mouth once daily Active valsartan-hydro CHLOROthiazide (DIOVAN HCT) 160-25 MG tablet Take 1 tablet by mouth once daily 08/12/2019 Active levothyroxine (SYNTHROID) 100 MCG tablet Take 100 mcg by mouth once daily 06/15/2019 Active clopidogrel (PLAVIX) 75 MG tablet Take 75 mg by mouth once daily 07/19/2020 Active meloxicam (MOBIC) 15 MG tablet Take 15 mg by mouth once daily 07/19/2020 Active clotrimazole-be tamethasone (LOTRISONE) 1-0.05 % cream Apply to affected area once daily as needed Active pravastatin (PRAVACHOL) 20 MG tablet TAKE 1 TABLET BY MOUTH EVERY DAY 30 tablet 3 07/17/2021 Active Active Problems Problem Noted Date Diagnosed Date Neck pain 01/21/2020 Immunizations Immunization Administration Dates Next Due INFLUENZA VACCINE, QUADR. (F LUZONE; FLULAVAL; FLUARIX; AFLURIA QUADRIVALENT; 6MO+), 0.5 ML (IIV4) 10/06/2015 Family History Medical History Relation Name Comments CAD (Coronary Artery Disease) Father Cancer Father Diabetes Father Hypertension Father Arthritis - Rheumatoid Mother Asthma Mother CAD (Coronary Artery Disease) Mother Cancer Mother Diabetes Mother Diabetes Sister 3 Heart Failure Sister 4 Relation Name Status Comments Father Mother Sister 1 Alive Sister 2 Alive Sister 3 Sister 4 Social History Tobacco Use Types Packs/Day Years Used Date Smoking Tobacco: Never Smokeless Tobacco: Never Alcohol Use Standard Drinks/Week Comments No 0 (1 standard drink = 0.6 oz pur e alcohol) Comments No Sex and Gender Information Value Date Recorded Sex Assigned at Not on file 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 Gender Identity Not on file Sexual Orientation Not on file 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 Not on file Not on file Last Filed Vital Signs Vital Sign Reading Time Taken Comments Blood Pressure 126/78 08/31/2020 12:12 PM CDT Pulse 78 08/31/2020 12:12 PM CDT Temperature 36.8 C (98.2 F) 01/22/2020 7:41 AM FRUIT HARVEST WORKER Respiratory Rate 18 08/31/2020 12:12 PM CDT Oxygen Saturation 97% 08/31/2020 12:12 PM CDT Inhaled Oxygen Concentration - - Weight 113.4 kg (250 lb) 08/31/2020 12:12 PM CDT Height 165.1 cm (5' 5) 08/31/2020 12:12 PM CDT Body Mass Index 41.6 08/31/2020 12:12 PM CDT Plan of Treatment Health Maintenance Due Date Last Done Comments CELIO (AGES 45-75) - COLON CA SCREENING 1961 COLON MONITORING 1961 COLONOSCOPY - COLON CA SCREENING 1961 CT COLONOGRAPHY - COLON CA SCREENING 1961 Colorectal Cancer Screening 1961 FIT - COLON CA SCREENING 1961 FLEX SIG - COLON CA SCREENING 1961 MAMMOGRAM 1961 HIV SCREENING 1976 HEPATITIS C SCREENING 07/07/1979 DTAP/TDAP/TD VACCINES (1 - Tdap) 1980 PNEUMOCOCCAL VACCINE 50+ (1 of 1 - PCV) 2011 ZOSTER VACCINE (1 of 2) 2011 SCREENING FOR DIABETES 06/24/2023 0, 06/24/2020, 06/23/2020, Additional history exists COVID-19 VACCINE (1 - 2023- season) 2024 DEPRESSION SCREENING 11/25/2024 INFLUENZA VACCINE (#1) 2025 0, 08/25/2019, 10/06/2015 Respiratory Syncytial Virus (RSV) Vaccine Pt: or over 60 yrs (1 - 1-dose 75+ series) 2036 HEPATITIS B VACCINE Aged Out No longe r eligible based on patient's age to complete this topic HIB VACCINE Aged Out No longer eligi ble based on patient's age to complete this topic HPV VACCINE Aged Out No longer eligi ble based on patient's age to complete this topic MENINGOCOCCAL (Group B) VACCINE SHARED DECISION-MAKING Aged Out No longer eligible based on patient's age to complete this topic MENINGOCOCCAL GROUPS A/C/Y/W VACCINE Aged Out No longer eligible based on patient's age to complete this topic Medical Devices Implanted Type Area 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 Clerk Device Identifier Shelf Expiration Date Model / Serial / Lot Grft Bone Bioact Sub 2.5cc Implanted:Qty : 1 on 10/05/2015 by Mak Sinha MD at [facility] Spine Cervical [employer] 06/24/2017 [id number] / / [id number] Scrw Set Implanted:Qty : 2 on 10/05/2015 by Mak Sinha MD at [facility] Spine Cervical [employer] 110.050 / / Scrw Std Self Drill 4.0mm X 14.0mm Implanted:Qty : 4 on 10/05/2015 by Mak Sinha MD at [facility] Spine Cervical [employer] 110.614 / / Scrw Rig Self Drill 14.0mm Implanted:Qty : 2 on 10/05/2015 by Mak Sinha MD at [facility] Spine Cervical [employer] 110.014 / / Globus 7mm Lordotic Cage Implanted:Qty : 1 on 10/05/2015 by Mak Sinha MD at [facility] Spine Cervical 365.407 / / Globus 9mm Lordotic Cage Implanted:Qty : 1 on 10/05/2015 by Mak Sinha MD at [facility] Spine Cervical 65.409 / / Plate Assure Ti 32mm Implanted:Qty : 1 on 10/05/2015 by Mak Sinha MD at [facility] Spine Cervical [employer] 110.232 / / Screw 3.6mm 14mm Fx Ang Slf Drl Spne Implanted:Qty : 1 on 01/21/2020 by Mak Sinha MD at [facility] N/A: Spine Cervical [facility] Medical 184.174 / / Description:@ C5 Screw 3.6mm 12mm Std Va Slf Drl Spne Implanted:Qty : 1 on 01/21/2020 by Mak Sinha MD at [facility] N/A: Spine Cervical [facility] Medical 184.152 / / Description:@C5 Graft Bone Alfs Dbm 1ml Gel Implanted:Qty : 1 on 01/21/2020 by Mak Sinha MD at [facility] [employer] 09/27/2021 [id number] / / [id number] [employer] Mis Spacer 12 X 14 7* 8h Implanted:Qty : 1 on 01/21/2020 by Mak Sinha MD at [facility] N/A: Spine Cervical [id number] / / Description:@ C4-5 Procedures Procedure Name Priority Date/Time Associated Diagnosis Comments COMPREHENSIVE METABOLIC PANEL STAT 12/31/2019 1:11 PM FRUIT HARVEST WORKER Pre-op evaluation from Last 3 Months or Most Recently Relevant to Health Maintenance Results * (ABNORMAL) COMPREHENSIVE METABOLIC PANEL (12/31/2019 1:11 PM FRUIT HARVEST WORKER) Glucose 143(H) 70 - 105 mg/dL 12/31/2019 1:49 PM FRUIT HARVEST WORKER [facility] Sodium 143 136 - 145 mmol/L 12/31/2019 1:49 PM FRUIT HARVEST WORKER [facility] Potassium 3.8 3.5 - 5.1 mmol/L 12/31/2019 1:49 PM [facility] Chloride 102 98 - 107 mmol/L 12/31/2019 1:49 PM [facility] CO2 26 23 - 31 mmol/L 12/31/2019 1:49 PM [facility] Calcium 10.3 8.4 - 10.4 mg/dL 12/31/2019 1:49 PM [facility] Anion Gap 15 8 - 16 mmol/L 12/31/2019 1:49 PM [facility] BUN 14 9.8 - 20.1 mg/dL 12/31/2019 1:49 PM [facility] Creatinine 0.75 0.57 - 1.11 mg/dL 12/31/2019 1:49 PM [facility] Alkaline Phosphatase 81 40 - 150 U/L 12/31/2019 1:49 PM [facility] ALT 32 0 - 61 U/L 12/31/2019 1:49 PM [facility] AST 26 5 - 34 U/L 12/31/2019 1:49 PM [facility] Protein Total 7.6 6.4 - 8.3 gm/dL 12/31/2019 1:49 PM [facility] Albumin 4.5 3.5 - 5.2 gm/dL 12/31/2019 1:49 PM [facility] Bilirubin Total 0.4 0.2 - 1.0 mg/dL 12/31/2019 1:49 PM [facility] eGFR by MDRD >60 >60 mL/min/1.7 3m2 12/31/2019 1:49 PM FRUIT HARVEST WORKER [facility] eGFR by MDRD >60 >60 mL/min/1.7 3m2 12/31/2019 1:49 PM [facility] Blood BLOOD SPECIMEN / Unknown Venipuncture / Unknown 12/31/2019 1:11 PM FRUIT HARVEST WORKER 12/31/2019 1:27 PM FRUIT HARVEST WORKER Rosalba Mccoy OUTREACH REPRESENTATIVE-CUSTOMER CONSULTANT LAB - CHEMISTRY OR DERABLES Final Result Performing Organization Address City/State/[facility] Co de Phone Number [facility] [address] [place] [address] from Last 3 Months or Most Recently Relevant to Health Maintenance Insurance [facility] [place] [address] PAYOR GENERIC Advance Directives * Full Code (Latest Code Status on File) Date Activated Date Inactivated Comments 01/21/2020 1:34 PM 01/22/2020 10:18 AM * Full Code Date Activated Date Inactivated Comments 10/05/2015 6:35 PM 10/06/2015 3:47 PM Care Teams Manager Endoscopy Relationship Specialty Start Date End Date Jacob Weir MD [address] [place] [phone] PCP - General 01/09/21
--- OUTSIDE RECORDS SUMMARY | 2025-06-15 12:30 | XMS_ITS | Encounter Summary ---
Author Organization [facility] Address [address] [place] [address] Care Team Providers Care Simulation Tech Name Role Phone Jacob Weir MD Primary Care Provider Encounter Details Date Type Department Care Team (Late st Contact Info) Description 03/12/2022 Lab Requisition [facility] Care DermPath Lab [address] 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 Answer Date of Assessment Author Yes 10/05/2015 9:00 PM HULL LINE CREW MEMBER Elyse Yost RN * Is person blind [...] Priority Date/Time Associated Diagnosis Comments DERMATOPATHOLOGY Routine 03/09/2022 3:33 AM CDT documented in this encounter Results * DERMATOPATHOLOGY (03/09/2022 3:33 AM CDT) Case Report Dermatopathology Report Case: [id number] Authorizing Provider: Linwood Marques Jr., MD Collected: 03/09/2022 03:33 AM Ordering Location: [facility] [place] DermPath Lab Received: 03/12/2022 01:18 PM Pathologist: Joe Velazquez MD Specimen: Skin, left anterior lateral proximal thigh 2 2:46 PM CDT DERMATOPATHOLOGY LABORATORY Final Diagnosis Specimen A. SKIN, left anterior lateral proximal thigh: BASAL CELL CARCINOMA, NODULAR TYPE (C44.719) 2 2:46 PM CDT DERMATOPATHOLOGY LABORATORY at 1446 CDT Clinical History Basal cell carcinoma vs irritated seborrheic keratosis vs squamous cell carcinoma. 2 2:46 PM CDT DERMATOPATHOLOGY LABORATORY Gross Description Specimen A: Received is one formalin filled container labeled with the patient's name and designated left anterior lateral proximal thigh. The specimen consists of a shave biopsy measuring 8x8x1 mm. Jar 0. 04/19/202 2 2:46 PM CDT DERMATOPATHOLOGY LABORATORY Microscopic Description Specimen A. SKIN, left anterior lateral proximal thigh: Within the dermis there are aggregates of basaloid cells with a high nuclear to cytoplasmic ratio and peripheral palisading. 2 2:46 PM CDT DERMATOPATHOLOGY LABORATORY Disclaimer An external and internal positive and negative controls are appropriate for the histochemical, immunohistochemical and immunofluorescence stain(s) in this case (if any), except where stated explicitly. The performance characteristics of the stain(s) cited in this report were developed and its performance characteristic determined by the Dermatopathology Laboratory at [facility], directed by Dr. Adelaida Velazquez. These tests need not be, and therefore are not, approved by the [place] Food and Drug Administration. The tests are used for clinical purposes. Billing Codes Specimen Charges Stain Charges 55140 1 2 2:46 PM CDT DERMATOPATHOLOGY LABORATORY Embedded Images 2 2:46 PM CDT DERMATOPATHOLOGY LABORATORY Pathology/Cytolo gy TISSUE SPECIMEN FROM SKIN / Unknown 03/09/2022 3:33 AM CDT 03/12/2022 1:18 PM CDT Linwood Marques Jr., MD LAB - PATHOLOGY/CYTOLOG Y ORDERABLES Final Result DERMATOPATHOLOGY LABORATORY [facility] - Department of Dermatology [facility] [address] [place] [address], [address] [phone] documented in this encounter Visit Diagnoses Not on filedocumented in this encounter Care Teams Simulation Tech Relationship Specialty Start Date End Date Jacob Weir MD 2 [facility] [address] [place] [phone] PCP - General 01/09/21 documented as of this encounter
--- OUTSIDE RECORDS SUMMARY | 2025-06-15 12:30 | XMS_ITS | Patient Health Record ---
Author Organization [facility] Address [address] [place], [place] [address] Care Team Providers Care Manager Golf Name Role Phone ANGI GOMEZ Unavailable [phone] Drake Long Unavailable Unavailable Allergies Allergen (clinical drug ingredient) Drug/Non Drug Allergy documented on EMR Reaction Allergy Type Onset Date Status aspirin Aspirin Unknown Drug Allergy Active Tape Unknown Allergy Active Reason For Referral No Information Social History Tobacco Use: Social History Observation Description Date Details (start date - stop date) Never Smoker NA - NA Tobacco Control (Standard) Question Answer Notes Tobacco use: Nonsmoker Vital Signs Height-cm 162.56 cm 07/16/2024 Weight-kg 97.52 kg 07/16/2024 Height 64 in 07/16/2024 Weight 215 lbs 07/16/2024 BMI 36.9 kg/m2 07/16/2024 Encounters Encounter Location Date Provider Diagnosis [facility] [address] [place] [phone] 07/16/2024 ANGIIVONE GOMEZ Ganglion cyst of right foot M67.471 ; Neoplasm of unspecified behavior of bone, soft tissue, and skin D49.2 and Pain in right foot M79.671 [facility] [address] [place], [place] [phone] 07/30/2024 ANGIIVONE GOMEZ Ganglion cyst of right foot M67.471 ; Neoplasm of unspecified behavior of bone, soft tissue, and skin D49.2 and Pain in right foot M79.671 [facility] [address] [place], [place] [id number] 07/10/2024 ANGI GOMEZ Assessments Encounter Date Diagnosis (ICD Code) Assessment Notes Treatment Notes Treatment Clinical Notes Section Notes 07/16/2024 Neoplasm of unspecified behavior of bone, soft tissue, and skin (ICD-10 - D49.2) 07/16/2024 Ganglion cyst of right foot (ICD-10 - M67.471) 07/30/2024 Ganglion cyst of right foot (ICD-10 - M67.471) 07/30/2024 Neoplasm of unspecified behavior of bone, soft tissue, and skin (ICD-10 - D49.2) 07/16/2024 Pain in right foot (ICD-10 - M79.671) 07/30/2024 Pain in right foot (ICD-10 - M79.671) 07/16/2024 Other Following skin prep, a total of 3 ccs of a 1-1-1 mix of 0.5% marcaine plain, Kenalog, and dexamethasone sodium phosphate was injected into the patients right dorsal foot. 07/30/2024 Other I advised the patient that no further treatment is necessary at this time. If the condition should worsen they should call the office. Plan Of Treatment No Information Insurance Providers Payer Name Payer Address Payer Phone Subscriber Number Group Number Insured Name Patient Relationship to Insured Coverage Start Date Coverage End Date [facility] [address] [address] [place] [address] [id number] Jany Courtney Self - patient is the insured for Life ([employer]) [address] [place], [place] [id number] Jany Courtney Self - patient is the insured Medical (General) History Medical History History ICD Code kidney stones stroke Leg/Feet cramps Arthritis Cancer Sleep apnea Thyroid Disease Diabetic
== END 2025-06-15 12:14 | disposition home or self-care (01) ==
PROVIDERS: PCP Hospitalist; Visit Provider Urology
DX: N20.0 Calculus of kidney (principal)
CPT/HCPCS: 74018